=== PATIENT | male | born 1965 | race African-American/Black ===

== ENCOUNTER 2016-12-05 16:55 | Inpatient (IN) | payer OTHER ==
[~2016-12-05] VITALS: Ht 172.7 cm; Wt 117.9 kg
[~2016-12-05 16:55] MED LIST: AMLODIPINE BESYL5 MG PO; BACLOFEN10 MG PO; BUSPAR15 MG PO; CELECOXIB200 MG PO; CIALIS5 MG PO; FENTANYL1 EAC4 TD; FLOVENT DISKUS1 DISK IH; GABAPENTIN400 MG PO; LEXAPRO20 MG PO; LISINOPRIL5 MG PO; NEURONTIN300 MG PO; OMEPRAZOLE20 MG PO; OXYCODONE-APAP1 EACH PO; POLYETHYLENE GL17 GM PO; PREDNISONE10 MG PO; SEROQUEL200 MG PO; SEROQUEL50 MG PO; SIMVASTATIN40 MG PO; TAMSULOSIN HCL0.4 MG PO; TIZANIDINE HCL2 MG PO; TRILEPTAL600 MG PO; VENTOLIN HFA18 GM IH; ZITHROMAX Z-PA250 MG PO
[2016-12-05 17:58] LABS: EOSINOPHIL (%) 4.4 % (0-5); EOSINOPHIL COUNT 0.5 K/uL (0-0.3); HEMATOCRIT 37.4 % (38.0-50.0); IMMATURE GRANULOCYTE (%) 0.2 % (0.0-0.7); IMMATURE GRANULOCYTE COUNT 0.2 K/uL; LYMPHOCYTE COUNT 1.6 K/uL (1.0-2.8); MCH 27.2 PG (29.0-34.0); MCHC 32.9 G/DL (30.0-36.0); MCV 82.7 FL (86-99); MEAN PLAT.VOLUME 8.9 uM^3 (9.0-12.4); MONOCYTE (%) 11.7 % (3-12); MONOCYTE COUNT 1.3 K/uL (0-0.8); NEUTROPHIL (%) 68.8 % (45-76); NEUTROPHIL COUNT 7.4 K/uL (1.8-6.4); PLATELET COUNT 292 K/uL (156-360); RBC DIS.WIDTH-CV 15.6 % (11.8-14.6); RBC DIS.WIDTH-SD 46.8 % (39-53); RED BLOOD COUNT 4.52 M/uL (4.00-5.50); WHITE BLOOD COUNT 10.7 K/uL (4.1-10.2)
[2016-12-05 18:11] LABS: CHLORIDE 100 mEq/L (99-109); POTASSIUM 3.6 mEq/L (3.7-5.4); SODIUM 137 mEq/L (136-147)
[2016-12-05 18:12] LABS: MAGNESIUM 2.3 mg/dL (1.3-2.7)
[2016-12-05 18:14] LABS: GLUCOSE 117 mg/dL (70-99)
[2016-12-05 18:15] LABS: ANION GAP 11 MEQ/L (2-14)
[2016-12-05 18:16] LABS: TOTAL BILIRUBIN 0.4 mg/dL (0.0-1.0)
[2016-12-05 18:17] LABS: ALKALINE PHOSPHATASE 70 IU/L (3-129); GFR ESTIMATE (CALCULATED) 29 mL/min/
[2016-12-05 18:18] LABS: UREA NITROGEN (BUN) 31 mg/dL (9-23)
[2016-12-05 18:20] LABS: TROP-I INTERPRETATION NEGATIVE; TROPONIN-I 0.01 ng/mL (0.0-0.30)
[2016-12-05 20:14] LABS: ADD MIUA? YES; BILIRUBIN NEGATIVE; BLOOD MODERATE; COLOR YELLOW ((YELLOW)); GLUCOSE (STRIP) NEGATIVE; KETONES NEGATIVE; LEUKOCYTES LARGE; NITRITE NEGATIVE; PROTEIN (STRIP) 100; SPECIFIC GRAVITY 1.012 (1.000-1.030); UROBILINOGEN 0.2 MG/DL (0.2-1.0)
[2016-12-05 20:30] LABS: CALCIUM OXALATE CRYSTALS 2+ /HPF; CRYSTALS PRESENT; EPITHELIAL CELLS 1+ /HPF
[2016-12-05 20:31] LABS: BACTERIA 1+ /HPF; CASTS NONE SEEN /LPF; MUCUS 3+ /LPF; UCUL ADDED? NO
[2016-12-05 21:46] LABS: SALICYLATE < 5.0 MG/DL (15-30)
[2016-12-05 23:30] VITALS: BP 133/64; BP 136/76
[2016-12-06 04:00] VITALS: BP 118/76
[2016-12-06 07:39] LABS: HEMATOCRIT 34.8 % (38.0-50.0); MCH 27.6 PG (29.0-34.0); MCHC 33.3 G/DL (30.0-36.0); MCV 82.7 FL (86-99); PLATELET COUNT 261 K/uL (156-360); RBC DIS.WIDTH-CV 15.3 % (11.8-14.6); RBC DIS.WIDTH-SD 46.2 % (39-53); RED BLOOD COUNT 4.21 M/uL (4.00-5.50)
[2016-12-06 07:41] LABS: WHITE BLOOD COUNT 7.3 K/uL (4.1-10.2)
[2016-12-06 07:53] LABS: AMPHETAMINES QUANT VALUE 0 NG/ML; BARBITUATES QUANT VALUE 0 NG/ML; BENZODIAZEPINES, URINE SCREEN POSITIVE (200 ng/mL); PHENCYCLIDINE QUANT VALUE 0 NG/ML
[2016-12-06 09:26] LABS: ALKALINE PHOSPHATASE 51 IU/L (3-129); ANION GAP 9 MEQ/L (2-14); CHLORIDE 105 MEQ/L (99-109); GFR ESTIMATE (CALCULATED) 37 mL/min/; GLUCOSE 118 mg/dL (70-99); POTASSIUM 4.5 MEQ/L (3.7-5.4); SAMPLE HEMOLYSIS CHECK 0; SAMPLE ICTERIC CHECK 0; SAMPLE LIPEMIA CHECK 0; SODIUM 140 MEQ/L (136-147); TOTAL BILIRUBIN 0.5 MG/DL (0.0-1.0); UREA NITROGEN (BUN) 27 mg/dL (9-23)
[2016-12-06 09:56] LABS: FERRITIN 219 NG/ML (22-322)
[2016-12-06 10:00] VITALS: BP 158/79
[2016-12-06 12:00] VITALS: BP 158/79
[2016-12-06 16:00] VITALS: BP 135/80
[2016-12-06 20:00] VITALS: BP 157/79
[2016-12-06 23:55] VITALS: BP 158/77
[2016-12-07] MEDS ORDERED: BACLOFEN20 MG PO (00:47)
[2016-12-07] MEDS ORDERED: PRILOSEC OTC20 MG PO (00:48)
[2016-12-07] MEDS ORDERED: LASIX20 MG PO (00:48)
[2016-12-07] MEDS ORDERED: AMLODIPINE BESYL5 MG PO (00:48)
[2016-12-07] MEDS ORDERED: SIMVASTATIN40 MG PO (00:50)
[2016-12-07] MEDS ORDERED: LISINOPRIL5 MG PO (00:51)
[2016-12-07] MEDS ORDERED: FLOMAX0.4 MG PO (00:51)
[2016-12-07] MEDS ORDERED: OXYMORPHONE HCL20 MG PO (00:53)
[2016-12-07] MEDS ORDERED: OXYCODONE HCL15 MG PO (00:53)
[2016-12-07 04:00] VITALS: BP 130/69
[2016-12-07 06:13] LABS: EOSINOPHIL (%) 5.3 % (0-5); EOSINOPHIL COUNT 0.3 K/uL (0-0.3); HEMATOCRIT 30.7 % (38.0-50.0); IMMATURE GRANULOCYTE (%) 0.3 % (0.0-0.7); LYMPHOCYTE COUNT 2.1 K/uL (1.0-2.8); MCH 27.4 PG (29.0-34.0); MCHC 33.2 G/DL (30.0-36.0); MCV 82.5 FL (86-99); MONOCYTE (%) 13.8 % (3-12); MONOCYTE COUNT 0.9 K/uL (0-0.8); NEUTROPHIL (%) 47.3 % (45-76); NEUTROPHIL COUNT 3.1 K/uL (1.8-6.4); PLATELET COUNT 230 K/uL (156-360); RBC DIS.WIDTH-CV 15.7 % (11.8-14.6); RBC DIS.WIDTH-SD 47.5 % (39-53); RED BLOOD COUNT 3.72 M/uL (4.00-5.50); WHITE BLOOD COUNT 6.4 K/uL (4.1-10.2)
[2016-12-07 06:45] LABS: ALKALINE PHOSPHATASE 44 IU/L (3-129); ANION GAP 5 MEQ/L (2-14); CHLORIDE 106 MEQ/L (99-109); GFR ESTIMATE (CALCULATED) > 59 mL/min/; GLUCOSE 99 mg/dL (70-99); SAMPLE HEMOLYSIS CHECK 0; SAMPLE ICTERIC CHECK 0; SAMPLE LIPEMIA CHECK 0; SODIUM 139 MEQ/L (136-147); TOTAL BILIRUBIN 0.4 MG/DL (0.0-1.0); UREA NITROGEN (BUN) 21 mg/dL (9-23)
[2016-12-07 07:54] VITALS: BP 147/91
[2016-12-07 15:34] VITALS: BP 143/71
[2016-12-07 23:57] VITALS: BP 142/60
[2016-12-08 06:34] LABS: EOSINOPHIL (%) 8.3 % (0-5); EOSINOPHIL COUNT 0.5 K/uL (0-0.3); HEMATOCRIT 32.2 % (38.0-50.0); LYMPHOCYTE COUNT 2.7 K/uL (1.0-2.8); MCH 27.3 PG (29.0-34.0); MCHC 32.6 G/DL (30.0-36.0); MCV 83.6 FL (86-99); MEAN PLAT.VOLUME 9.7 uM^3 (9.0-12.4); MONOCYTE (%) 10.6 % (3-12); MONOCYTE COUNT 0.7 K/uL (0-0.8); NEUTROPHIL (%) 37.7 % (45-76); NEUTROPHIL COUNT 2.4 K/uL (1.8-6.4); PLATELET COUNT 255 K/uL (156-360); RBC DIS.WIDTH-CV 15.6 % (11.8-14.6); RBC DIS.WIDTH-SD 47.8 % (39-53); RED BLOOD COUNT 3.85 M/uL (4.00-5.50); WHITE BLOOD COUNT 6.3 K/uL (4.1-10.2)
[2016-12-08 07:04] LABS: ALKALINE PHOSPHATASE 46 IU/L (3-129); ANION GAP 9 MEQ/L (2-14); CHLORIDE 105 MEQ/L (99-109); GFR ESTIMATE (CALCULATED) > 59 mL/min/; GLUCOSE 127 mg/dL (70-99); SAMPLE HEMOLYSIS CHECK 0; SAMPLE ICTERIC CHECK 0; SAMPLE LIPEMIA CHECK 0; SODIUM 140 MEQ/L (136-147); UREA NITROGEN (BUN) 15 mg/dL (9-23)
[2016-12-08 07:10] LABS: TOTAL BILIRUBIN 0.3 MG/DL (0.0-1.0)
[2016-12-08 07:52] VITALS: BP 130/82
[2016-12-08] MEDS ORDERED: GABAPENTIN400 MG PO (11:53)
[2016-12-08] MEDS ORDERED: GABAPENTIN600 MG PO (11:53)
[2016-12-08 16:05] VITALS: BP 138/83
[2016-12-08 23:04] VITALS: BP 148/88
[2016-12-09 09:26] VITALS: BP 158/77
[2016-12-09 16:30] VITALS: BP 148/85
[2016-12-09] MEDS ORDERED: NEURONTIN600 MG PO (18:00)
[2016-12-09] MEDS ORDERED: GABAPENTIN600 MG PO ×3 (18:02→18:04)
[2016-12-09 23:28] VITALS: BP 140/80
[2016-12-10 07:00] VITALS: BP 143/84
[2016-12-10 07:27] LABS: HEMATOCRIT 32.8 % (38.0-50.0); MCH 27.4 PG (29.0-34.0); MCHC 33.5 G/DL (30.0-36.0); MCV 81.8 FL (86-99); MEAN PLAT.VOLUME 9.4 uM^3 (9.0-12.4); PLATELET COUNT 245 K/uL (156-360); RBC DIS.WIDTH-CV 15.2 % (11.8-14.6); RBC DIS.WIDTH-SD 45.1 % (39-53); RED BLOOD COUNT 4.01 M/uL (4.00-5.50); WHITE BLOOD COUNT 7.7 K/uL (4.1-10.2)
[2016-12-10 07:50] LABS: ALKALINE PHOSPHATASE 48 IU/L (3-129); ANION GAP 7 MEQ/L (2-14); CHLORIDE 104 MEQ/L (99-109); GFR ESTIMATE (CALCULATED) > 59 mL/min/; GLUCOSE 106 mg/dL (70-99); POTASSIUM 3.9 MEQ/L (3.7-5.4); SAMPLE HEMOLYSIS CHECK 0; SAMPLE ICTERIC CHECK 0; SAMPLE LIPEMIA CHECK 0; SODIUM 142 MEQ/L (136-147); TOTAL BILIRUBIN 0.3 MG/DL (0.0-1.0); UREA NITROGEN (BUN) 9 mg/dL (9-23)
== END 2016-12-10 12:45 | disposition home health service (06) | DRG 918 ==
LOC: EME 16:55 → EDOF 21:10 → 4EAST 21:10 → EDOF 21:49 → 4EAST 23:47 → 5EAST 12-07 14:01
PROVIDERS: Emergency Medicine; Internal Medicine; Nurse Practitioner Adult Health; Pediatrics
DX: T40.601A Poisoning by unspecified narcotics, accidental (unintentional), initial encounter (principal); N17.9 Acute kidney failure, unspecified; T83.511A Infection and inflammatory reaction due to indwelling urethral catheter, initial encounter; T83.091A Other mechanical complication of indwelling urethral catheter, initial encounter; N39.0 Urinary tract infection, site not specified; G82.21 Paraplegia, complete; B95.2 Enterococcus as the cause of diseases classified elsewhere; B96.20 Unspecified Escherichia coli [E. coli] as the cause of diseases classified elsewhere; N36.8 Other specified disorders of urethra; E87.6 Hypokalemia; G35 Multiple sclerosis; N31.9 Neuromuscular dysfunction of bladder, unspecified; I10 Essential (primary) hypertension; K21.9 Gastro-esophageal reflux disease without esophagitis; E78.00 Pure hypercholesterolemia, unspecified; N40.1 Benign prostatic hyperplasia with lower urinary tract symptoms; R33.9 Retention of urine, unspecified; G89.29 Other chronic pain; E66.9 Obesity, unspecified; Z88.2 Allergy status to sulfonamides; Z68.39 Body mass index [BMI] 39.0-39.9, adult
CPT/HCPCS: 70450; 71010; 76770; 80053; 80306 90; 81003; 82306; 82728; 83605; 83735; 84484; 85025; 85027; 87040; 87077; 87086; 87186; 94799; 99281; 99285; G0480; J0696; J1644; J2310; J2405; J3480; J7030; J7040; J7050; S0028

== ENCOUNTER 2017-02-16 19:33 | Inpatient (IN) | payer OTHER ==
[~2017-02-16] VITALS: Ht 167.6 cm; Wt 119.2 kg
[~2017-02-16 19:33] MED LIST changes: +BACLOFEN20 MG PO; +FLOMAX0.4 MG PO; +GABAPENTIN600 MG PO; +LASIX20 MG PO; +NEURONTIN600 MG PO; +OXYCODONE HCL15 MG PO; +OXYMORPHONE HCL20 MG PO; +PRILOSEC OTC20 MG PO
[2017-02-16 21:11] LABS: EOSINOPHIL (%) 0 % (0-5); HEMATOCRIT 34.7 % (38.0-50.0); IMMATURE GRANULOCYTE COUNT 0.2 K/uL; INSTRUMENT ABS NEUTROPHIL CT 12.7 K/uL; LYMPHOCYTE COUNT 1.1 K/uL (1.0-2.8); MCH 26.6 PG (29.0-34.0); MCV 83.2 FL (86-99); MEAN PLAT.VOLUME 8.6 uM^3 (9.0-12.4); MONOCYTE (%) 8.5 % (3-12); MONOCYTE COUNT 1.3 K/uL (0-0.8); NEUTROPHIL (%) 83.2 % (45-76); NEUTROPHIL COUNT 12.7 K/uL (1.8-6.4); PLATELET COUNT 452 K/uL (156-360); RBC DIS.WIDTH-CV 13.3 % (11.8-14.6); RBC DIS.WIDTH-SD 39.9 % (39-53); RED BLOOD COUNT 4.17 M/uL (4.00-5.50); WHITE BLOOD COUNT 15.3 K/uL (4.1-10.2)
[2017-02-16 21:18] LABS: CHLORIDE 93 mEq/L (99-109); SODIUM 134 mEq/L (136-147)
[2017-02-16 21:21] LABS: GLUCOSE 116 mg/dL (70-99)
[2017-02-16 21:22] LABS: ANION GAP 12 MEQ/L (2-14)
[2017-02-16 21:23] LABS: TOTAL BILIRUBIN 0.6 mg/dL (0.0-1.0)
[2017-02-16 21:24] LABS: ALKALINE PHOSPHATASE 85 IU/L (3-129); GFR ESTIMATE (CALCULATED) > 59 mL/min/
[2017-02-16 21:25] LABS: UREA NITROGEN (BUN) 12 mg/dL (9-23)
[2017-02-16 21:28] LABS: LIPASE 10 U/L (1.0-51.0)
[2017-02-16 21:33] LABS: ADD MIUA? YES; BILIRUBIN NEGATIVE; BLOOD LARGE; COLOR AMBER ((YELLOW)); GLUCOSE (STRIP) NEGATIVE; KETONES 5; LEUKOCYTES MODERATE; NITRITE NEGATIVE; PROTEIN (STRIP) 100; SPECIFIC GRAVITY 1.015 (1.000-1.030)
[2017-02-16 21:41] LABS: BACTERIA NONE SEEN /HPF; EPITHELIAL CELLS NONE SEEN /HPF; MUCUS NONE SEEN /LPF; RED BLOOD CELLS 40-50 /HPF (0-5); UCUL ADDED? NO; WHITE BLOOD CELLS 20-30 /HPF (0-5); WHITE BLOOD CELLS CLUMP MANY /HPF (0-5)
[2017-02-16] MEDS ORDERED: OPANA ER20 MG PO (23:51)
[2017-02-16] MEDS ORDERED: OXYMORPHONE HCL15 MG PO (23:52)
[2017-02-16] MEDS ORDERED: CYMBALTA60 MG PO (23:54)
[2017-02-16] MEDS ORDERED: LEXAPRO20 MG PO (23:54)
[2017-02-16] MEDS ORDERED: CLONIDINE HCL0.1 MG PO (23:54)
[2017-02-17 00:35] VITALS: BP 142/76
[2017-02-17 04:57] VITALS: BP 146/63
[2017-02-17 06:10] LABS: HEMATOCRIT 32.7 % (38.0-50.0); MCH 26.7 PG (29.0-34.0); MCHC 31.2 G/DL (30.0-36.0); MCV 85.6 FL (86-99); MEAN PLAT.VOLUME 9.1 uM^3 (9.0-12.4); PLATELET COUNT 401 K/uL (156-360); RBC DIS.WIDTH-CV 13.4 % (11.8-14.6); RED BLOOD COUNT 3.82 M/uL (4.00-5.50)
[2017-02-17 06:26] LABS: ANION GAP 11 MEQ/L (2-14); CHLORIDE 96 MEQ/L (99-109); GFR ESTIMATE (CALCULATED) > 59 mL/min/; GLUCOSE 115 mg/dL (70-99); POTASSIUM 4.3 MEQ/L (3.7-5.4); SAMPLE HEMOLYSIS CHECK 0; SAMPLE ICTERIC CHECK 0; SAMPLE LIPEMIA CHECK 0; SODIUM 135 MEQ/L (136-147); UREA NITROGEN (BUN) 11 mg/dL (9-23)
[2017-02-17 07:30] VITALS: BP 143/84
[2017-02-17 11:05] VITALS: BP 138/79
[2017-02-17 15:18] LABS: D-DIMER ELISA 1.56 mg/L FEU (< 0.57)
[2017-02-17 15:40] LABS: INTER. NORMALIZED RATIO 1.4; PROTHROMBIN TIME 14.9 (9.2-11.2)
[2017-02-17 16:13] VITALS: BP 146/69
[2017-02-17 20:31] VITALS: BP 131/79
[2017-02-17 22:22] LABS: POINT-OF-CARE METER ID UU13113698
[2017-02-18 00:10] VITALS: BP 114/62
[2017-02-18 03:40] VITALS: BP 104/65
[2017-02-18 05:01] VITALS: BP 105/59
[2017-02-18 06:56] LABS: INTER. NORMALIZED RATIO 1.3; PROTHROMBIN TIME 13.4 (9.2-11.2)
[2017-02-18 07:35] VITALS: BP 112/72
[2017-02-18 08:08] LABS: EOSINOPHIL (%) 2.1 % (0-5); EOSINOPHIL COUNT 0.2 K/uL (0-0.3); HEMATOCRIT 38.5 % (38.0-50.0); IMMATURE GRANULOCYTE (%) 0.4 % (0.0-0.7); INSTRUMENT ABS NEUTROPHIL CT 5.8 K/uL; LYMPHOCYTE COUNT 1.1 K/uL (1.0-2.8); MCH 26.3 PG (29.0-34.0); MCHC 30.6 G/DL (30.0-36.0); MCV 85.7 FL (86-99); MEAN PLAT.VOLUME 9.8 uM^3 (9.0-12.4); MONOCYTE (%) 10.4 % (3-12); MONOCYTE COUNT 0.8 K/uL (0-0.8); NEUTROPHIL (%) 73.1 % (45-76); NEUTROPHIL COUNT 5.8 K/uL (1.8-6.4); PLATELET COUNT 295 K/uL (156-360); RBC DIS.WIDTH-CV 13.4 % (11.8-14.6); RBC DIS.WIDTH-SD 42.5 % (39-53); RED BLOOD COUNT 4.49 M/uL (4.00-5.50)
[2017-02-18 12:20] VITALS: BP 93/52
[2017-02-18 13:17] LABS: ANION GAP 6 MEQ/L (2-14); CHLORIDE 93 MEQ/L (99-109); GFR ESTIMATE (CALCULATED) > 59 mL/min/; GLUCOSE 126 mg/dL (70-99); POTASSIUM 3.6 MEQ/L (3.7-5.4); SAMPLE HEMOLYSIS CHECK 0; SAMPLE ICTERIC CHECK 0; SAMPLE LIPEMIA CHECK 0; SODIUM 130 MEQ/L (136-147); UREA NITROGEN (BUN) 10 mg/dL (9-23)
[2017-02-18 20:00] VITALS: BP 107/59
[2017-02-19] VITALS: BP 102/53
[2017-02-19 04:00] VITALS: BP 95/57
[2017-02-19 07:45] VITALS: BP 102/65
[2017-02-19 08:44] LABS: EOSINOPHIL COUNT 0.4 K/uL (0-0.3); HEMATOCRIT 27.9 % (38.0-50.0); IMMATURE GRANULOCYTE (%) 0.4 % (0.0-0.7); INSTRUMENT ABS NEUTROPHIL CT 4.1 K/uL; LYMPHOCYTE COUNT 1.6 K/uL (1.0-2.8); MCH 26.8 PG (29.0-34.0); MCHC 31.9 G/DL (30.0-36.0); MEAN PLAT.VOLUME 9.1 uM^3 (9.0-12.4); NEUTROPHIL (%) 57.8 % (45-76); NEUTROPHIL COUNT 4.1 K/uL (1.8-6.4); PLATELET COUNT 333 K/uL (156-360); RBC DIS.WIDTH-CV 13.2 % (11.8-14.6); RBC DIS.WIDTH-SD 40.8 % (39-53); WHITE BLOOD COUNT 7.2 K/uL (4.1-10.2)
[2017-02-19 08:45] LABS: RED BLOOD COUNT 3.32 M/uL (4.00-5.50)
[2017-02-19 08:46] LABS: INTER. NORMALIZED RATIO 1.2; PROTHROMBIN TIME 12.2 (9.2-11.2)
[2017-02-19 08:54] LABS: ANION GAP 6 MEQ/L (2-14); CHLORIDE 93 MEQ/L (99-109); GFR ESTIMATE (CALCULATED) > 59 mL/min/; GLUCOSE 112 mg/dL (70-99); POTASSIUM 3.6 MEQ/L (3.7-5.4); SAMPLE HEMOLYSIS CHECK 0; SAMPLE ICTERIC CHECK 0; SAMPLE LIPEMIA CHECK 0; SODIUM 131 MEQ/L (136-147); UREA NITROGEN (BUN) 9 mg/dL (9-23)
[2017-02-19 11:15] VITALS: BP 118/65
[2017-02-19 15:16] VITALS: BP 107/71
[2017-02-19 20:00] VITALS: BP 95/57
[2017-02-20] VITALS (7 sets, daily range): BP systolic 96–126; BP diastolic 51–70
[2017-02-20 05:42] LABS: EOSINOPHIL (%) 4.2 % (0-5); EOSINOPHIL COUNT 0.3 K/uL (0-0.3); IMMATURE GRANULOCYTE (%) 0.5 % (0.0-0.7); INSTRUMENT ABS NEUTROPHIL CT 3.5 K/uL; LYMPHOCYTE COUNT 1.5 K/uL (1.0-2.8); MCH 26.7 PG (29.0-34.0); MCV 83.6 FL (86-99); MEAN PLAT.VOLUME 9.1 uM^3 (9.0-12.4); MONOCYTE (%) 12.4 % (3-12); MONOCYTE COUNT 0.7 K/uL (0-0.8); NEUTROPHIL (%) 58.4 % (45-76); NEUTROPHIL COUNT 3.5 K/uL (1.8-6.4); PLATELET COUNT 359 K/uL (156-360); RBC DIS.WIDTH-CV 12.9 % (11.8-14.6); RBC DIS.WIDTH-SD 39.4 % (39-53); RED BLOOD COUNT 3.59 M/uL (4.00-5.50)
[2017-02-20 05:48] LABS: INTER. NORMALIZED RATIO 1.4; PROTHROMBIN TIME 14.1 (9.2-11.2)
[2017-02-20 06:03] LABS: ALKALINE PHOSPHATASE 69 IU/L (3-129); ANION GAP 7 MEQ/L (2-14); CHLORIDE 92 MEQ/L (99-109); GFR ESTIMATE (CALCULATED) > 59 mL/min/; GLUCOSE 100 mg/dL (70-99); POTASSIUM 3.3 MEQ/L (3.7-5.4); SAMPLE HEMOLYSIS CHECK 0; SAMPLE ICTERIC CHECK 0; SAMPLE LIPEMIA CHECK 0; SODIUM 133 MEQ/L (136-147); TOTAL BILIRUBIN 0.3 MG/DL (0.0-1.0); UREA NITROGEN (BUN) 7 mg/dL (9-23)
[2017-02-21 04:28] VITALS: BP 128/78
[2017-02-21 06:41] LABS: PROTHROMBIN TIME 20.9 (9.2-11.2)
[2017-02-21 08:00] VITALS: BP 123/70
[2017-02-21 12:00] VITALS: BP 145/80
[2017-02-21 16:00] VITALS: BP 142/75
[2017-02-21] MEDS ORDERED: REQUIP0.25 MG PO (18:25)
[2017-02-21 19:57] VITALS: BP 119/75
[2017-02-21 23:29] VITALS: BP 128/62
[2017-02-22 03:34] VITALS: BP 136/73
[2017-02-22 07:35] VITALS: BP 139/90
[2017-02-22 07:39] LABS: INTER. NORMALIZED RATIO 2.9
[2017-02-22 07:46] LABS: PROTHROMBIN TIME 30.8 (9.2-11.2)
[2017-02-22 10:21] LABS: ANION GAP 6 MEQ/L (2-14); CHLORIDE 95 MEQ/L (99-109); GFR ESTIMATE (CALCULATED) > 59 mL/min/; GLUCOSE 112 mg/dL (70-99); POTASSIUM 4.2 MEQ/L (3.7-5.4); SAMPLE HEMOLYSIS CHECK 0; SAMPLE ICTERIC CHECK 0; SAMPLE LIPEMIA CHECK 0; SODIUM 134 MEQ/L (136-147); UREA NITROGEN (BUN) 6 mg/dL (9-23)
[2017-02-22 11:30] VITALS: BP 137/80
[2017-02-22 15:22] VITALS: BP 122/66
[2017-02-22 19:51] VITALS: BP 113/85
[2017-02-22 23:33] VITALS: BP 128/76
[2017-02-23 03:29] VITALS: BP 111/68
[2017-02-23 07:17] VITALS: BP 135/84
[2017-02-23 07:38] LABS: INTER. NORMALIZED RATIO 2.3
[2017-02-23 07:50] LABS: ANION GAP 5 MEQ/L (2-14); CHLORIDE 95 MEQ/L (99-109); GFR ESTIMATE (CALCULATED) > 59 mL/min/; GLUCOSE 100 mg/dL (70-99); POTASSIUM 4.2 MEQ/L (3.7-5.4); SAMPLE HEMOLYSIS CHECK 0; SAMPLE ICTERIC CHECK 0; SAMPLE LIPEMIA CHECK 0; SODIUM 133 MEQ/L (136-147); UREA NITROGEN (BUN) 7 mg/dL (9-23)
[2017-02-23 11:05] VITALS: BP 134/71
[2017-02-23 15:00] VITALS: BP 125/72
[2017-02-23] MEDS ORDERED: WARFARIN SODIUM5 MG PO (15:43)
[2017-02-23] MEDS ORDERED: CEFDINIR300 MG PO (15:43)
== END 2017-02-23 19:36 | disposition home health service (06) | DRG 872 ==
LOC: EME → EDBD 19:33 → 4SOUTH 23:07 → EDOF 23:07 → 4SOUTH 02-17 00:19
PROVIDERS: Emergency Medicine; Hospitalist; Nurse Practitioner Adult Health; Pediatrics; Physician Assistant; Physician Assistant Medical
DX: A41.9 Sepsis, unspecified organism (principal); N10 Acute pyelonephritis; I82.413 Acute embolism and thrombosis of femoral vein, bilateral; K59.00 Constipation, unspecified; E87.6 Hypokalemia; N31.2 Flaccid neuropathic bladder, not elsewhere classified; G35 Multiple sclerosis; N40.1 Benign prostatic hyperplasia with lower urinary tract symptoms; Z99.3 Dependence on wheelchair; G82.20 Paraplegia, unspecified; I10 Essential (primary) hypertension; E78.5 Hyperlipidemia, unspecified; G89.29 Other chronic pain; E66.01 Morbid (severe) obesity due to excess calories; Z68.41 Body mass index [BMI] 40.0-44.9, adult; Z86.14 Personal history of Methicillin resistant Staphylococcus aureus infection; D64.9 Anemia, unspecified; K21.9 Gastro-esophageal reflux disease without esophagitis; T83.098A Other mechanical complication of other urinary catheter, initial encounter; N48.89 Other specified disorders of penis; L89.322 Pressure ulcer of left buttock, stage 2; M54.2 Cervicalgia; I89.0 Lymphedema, not elsewhere classified
CPT/HCPCS: 71010; 71275; 74000; 74176; 80048; 80053; 81003; 82948; 83605; 83690; 85025; 85027; 85379; 85610; 87040; 93306; 93970; 99281; 99285; J0692; J0696; J1650; J1940; J2405; J3475; J7030; J7050; S0028

== ENCOUNTER 2017-07-05 18:28 | Inpatient (IN) | payer OTHER ==
[~2017-07-05] VITALS: Ht 172.7 cm; Wt 122.5 kg
[~2017-07-05 18:28] MED LIST changes: +CEFDINIR300 MG PO; +CLONIDINE HCL0.1 MG PO; +CYMBALTA60 MG PO; +OPANA ER20 MG PO; +OXYMORPHONE HCL15 MG PO; +REQUIP0.25 MG PO; +WARFARIN SODIUM5 MG PO
[2017-07-05 19:16] LABS: HEMATOCRIT 36.5 % (38.0-50.0); MCH 25.9 PG (29.0-34.0); MCHC 31.2 G/DL (30.0-36.0); MEAN PLAT.VOLUME 8.3 uM^3 (9.0-12.4); RBC DIS.WIDTH-CV 14.6 % (11.8-14.6); RBC DIS.WIDTH-SD 44.3 % (39-53); WHITE BLOOD COUNT 6.3 K/uL (4.1-10.2)
[2017-07-05 19:29] LABS: CHLORIDE 89 mEq/L (99-109); PLATELET COUNT 243 K/uL (156-360)
[2017-07-05 19:30] LABS: POTASSIUM 3.5 mEq/L (3.7-5.4); SODIUM 132 mEq/L (136-147)
[2017-07-05 19:31] LABS: GLUCOSE 107 mg/dL (70-99)
[2017-07-05 19:33] LABS: ANION GAP 8 MEQ/L (2-14)
[2017-07-05 19:35] LABS: GFR ESTIMATE (CALCULATED) > 59 mL/min/
[2017-07-05 19:36] LABS: UREA NITROGEN (BUN) 7 mg/dL (9-23)
[2017-07-05] MEDS ORDERED: LISINOPRIL10 MG PO (22:00)
[2017-07-05] MEDS ORDERED: CARISOPRODOL350 MG PO (22:00)
[2017-07-05] MEDS ORDERED: OXYCODONE HCL30 MG PO (22:00)
[2017-07-05] MEDS ORDERED: COUMADIN5 MG PO (22:03)
[2017-07-05] MEDS ORDERED: COUMADIN1 MG PO (22:04)
[2017-07-05] MEDS ORDERED: REQUIP2 MG PO (22:08)
[2017-07-05] MEDS ORDERED: SEROQUEL50 MG PO (22:09)
[2017-07-05] MEDS ORDERED: ADDERALL XR 1010 MG PO (22:10)
[2017-07-06 02:28] LABS: PROTHROMBIN TIME 58.7 SEC (10.2-12.9)
[2017-07-06 03:11] VITALS: BP 101/57
[2017-07-06 05:18] LABS: METH RESISTANT S AUREUS PCR POSITIVE (NEGATIVE)
[2017-07-06 05:25] LABS: PROBE CHECK PASS
[2017-07-06 07:04] VITALS: BP 94/50
[2017-07-06 15:00] VITALS: BP 100/56
[2017-07-07 00:08] VITALS: BP 107/57
[2017-07-07 06:52] LABS: HEMATOCRIT 30.5 % (38.0-50.0); MCH 26.6 PG (29.0-34.0); MCHC 31.8 G/DL (30.0-36.0); MCV 83.8 FL (86-99); MEAN PLAT.VOLUME 8.7 uM^3 (9.0-12.4); PLATELET COUNT 249 K/uL (156-360); RBC DIS.WIDTH-CV 15.1 % (11.8-14.6); RBC DIS.WIDTH-SD 45.7 % (39-53); RED BLOOD COUNT 3.64 M/uL (4.00-5.50); WHITE BLOOD COUNT 4.7 K/uL (4.1-10.2)
[2017-07-07 07:26] LABS: INTER. NORMALIZED RATIO 3.2; PROTHROMBIN TIME 36.9 SEC (10.2-12.9)
[2017-07-07 07:31] LABS: ALKALINE PHOSPHATASE 62 IU/L (3-129); ANION GAP 3 MEQ/L (2-14); CHLORIDE 96 MEQ/L (99-109); GFR ESTIMATE (CALCULATED) > 59 mL/min/; GLUCOSE 107 mg/dL (70-99); POTASSIUM 3.6 MEQ/L (3.7-5.4); SAMPLE HEMOLYSIS CHECK 0; SAMPLE ICTERIC CHECK 0; SAMPLE LIPEMIA CHECK 0; SODIUM 135 MEQ/L (136-147); TOTAL BILIRUBIN 0.3 MG/DL (0.0-1.0); UREA NITROGEN (BUN) 8 mg/dL (9-23)
[2017-07-07 07:43] VITALS: BP 86/45
[2017-07-07 10:55] VITALS: BP 106/72
[2017-07-07 16:35] VITALS: BP 124/67
[2017-07-07 23:21] VITALS: BP 121/59
[2017-07-08 06:47] LABS: MCH 27.1 PG (29.0-34.0); MCV 84.7 FL (86-99); MEAN PLAT.VOLUME 9.3 uM^3 (9.0-12.4); PLATELET COUNT 237 K/uL (156-360); RBC DIS.WIDTH-CV 15.4 % (11.8-14.6); RBC DIS.WIDTH-SD 47.3 % (39-53); RED BLOOD COUNT 3.54 M/uL (4.00-5.50); WHITE BLOOD COUNT 4.9 K/uL (4.1-10.2)
[2017-07-08 07:10] LABS: INTER. NORMALIZED RATIO 2.5; PROTHROMBIN TIME 28.6 SEC (10.2-12.9)
[2017-07-08 07:15] LABS: ANION GAP 4 MEQ/L (2-14); CHLORIDE 101 MEQ/L (99-109); GFR ESTIMATE (CALCULATED) > 59 mL/min/; GLUCOSE 104 mg/dL (70-99); POTASSIUM 4.1 MEQ/L (3.7-5.4); SAMPLE HEMOLYSIS CHECK 0; SAMPLE ICTERIC CHECK 0; SAMPLE LIPEMIA CHECK 0; SODIUM 137 MEQ/L (136-147); UREA NITROGEN (BUN) 12 mg/dL (9-23)
[2017-07-08 07:43] LABS: IRON 26 MCG/DL (35-150)
[2017-07-08 07:44] LABS: ALKALINE PHOSPHATASE 58 IU/L (3-129); ANION GAP 3 MEQ/L (2-14); CHLORIDE 101 MEQ/L (99-109); GFR ESTIMATE (CALCULATED) > 59 mL/min/; GLUCOSE 104 mg/dL (70-99); POTASSIUM 4.1 MEQ/L (3.7-5.4); SAMPLE HEMOLYSIS CHECK 0; SAMPLE ICTERIC CHECK 0; SAMPLE LIPEMIA CHECK 0; SODIUM 137 MEQ/L (136-147); TOTAL BILIRUBIN 0.2 MG/DL (0.0-1.0); UREA NITROGEN (BUN) 12 mg/dL (9-23); VANCOMYCIN, TROUGH 13.6 MCG/ML (10-20)
[2017-07-08 08:21] VITALS: BP 120/80
[2017-07-08 11:24] VITALS: BP 118/78
[2017-07-08 16:05] VITALS: BP 108/57
[2017-07-08 17:58] LABS: INTERNAL CONTROL VALID? YES
[2017-07-09 00:15] VITALS: BP 103/58
[2017-07-09 07:02] LABS: HEMATOCRIT 32.1 % (38.0-50.0); MCH 26.1 PG (29.0-34.0); MCHC 30.5 G/DL (30.0-36.0); MCV 85.4 FL (86-99); MEAN PLAT.VOLUME 8.7 uM^3 (9.0-12.4); PLATELET COUNT 232 K/uL (156-360); RBC DIS.WIDTH-CV 15.5 % (11.8-14.6); RBC DIS.WIDTH-SD 48.1 % (39-53); RED BLOOD COUNT 3.76 M/uL (4.00-5.50); WHITE BLOOD COUNT 4.8 K/uL (4.1-10.2)
[2017-07-09 07:19] LABS: INTER. NORMALIZED RATIO 2.3; PROTHROMBIN TIME 25.8 SEC (10.2-12.9)
[2017-07-09 07:31] LABS: ALKALINE PHOSPHATASE 58 IU/L (3-129); ANION GAP 4 MEQ/L (2-14); CHLORIDE 103 MEQ/L (99-109); GFR ESTIMATE (CALCULATED) > 59 mL/min/; GLUCOSE 99 mg/dL (70-99); POTASSIUM 4.2 MEQ/L (3.7-5.4); SAMPLE HEMOLYSIS CHECK 0; SAMPLE ICTERIC CHECK 0; SAMPLE LIPEMIA CHECK 0; SODIUM 137 MEQ/L (136-147); UREA NITROGEN (BUN) 13 mg/dL (9-23)
[2017-07-09 07:33] LABS: TOTAL BILIRUBIN 0.3 MG/DL (0.0-1.0)
[2017-07-09 07:38] VITALS: BP 123/58
[2017-07-09 15:54] VITALS: BP 102/48
[2017-07-09 23:35] VITALS: BP 118/68
[2017-07-10 06:09] LABS: EOSINOPHIL COUNT 0.3 K/uL (0-0.3); HEMATOCRIT 30.2 % (38.0-50.0); IMMATURE GRANULOCYTE (%) 0.4 % (0.0-0.7); INSTRUMENT ABS NEUTROPHIL CT 2.8 K/uL; LYMPHOCYTE COUNT 1.6 K/uL (1.0-2.8); MCH 25.9 PG (29.0-34.0); MCHC 30.5 G/DL (30.0-36.0); MCV 85.1 FL (86-99); MEAN PLAT.VOLUME 8.8 uM^3 (9.0-12.4); MONOCYTE (%) 13.5 % (3-12); MONOCYTE COUNT 0.7 K/uL (0-0.8); NEUTROPHIL (%) 51.1 % (45-76); NEUTROPHIL COUNT 2.8 K/uL (1.8-6.4); PLATELET COUNT 237 K/uL (156-360); RBC DIS.WIDTH-CV 15.6 % (11.8-14.6); RBC DIS.WIDTH-SD 47.6 % (39-53); RED BLOOD COUNT 3.55 M/uL (4.00-5.50); WHITE BLOOD COUNT 5.5 K/uL (4.1-10.2)
[2017-07-10 06:29] LABS: INTER. NORMALIZED RATIO 2.4; PROTHROMBIN TIME 27.3 SEC (10.2-12.9)
[2017-07-10 06:46] LABS: ALKALINE PHOSPHATASE 58 IU/L (3-129); ANION GAP 5 MEQ/L (2-14); CHLORIDE 103 MEQ/L (99-109); GFR ESTIMATE (CALCULATED) > 59 mL/min/; GLUCOSE 95 mg/dL (70-99); POTASSIUM 4.4 MEQ/L (3.7-5.4); SAMPLE HEMOLYSIS CHECK 0; SAMPLE ICTERIC CHECK 0; SAMPLE LIPEMIA CHECK 0; SODIUM 138 MEQ/L (136-147); UREA NITROGEN (BUN) 13 mg/dL (9-23)
[2017-07-10 06:48] LABS: TOTAL BILIRUBIN 0.2 MG/DL (0.0-1.0)
[2017-07-10 15:32] VITALS: BP 108/56
[2017-07-10 23:46] VITALS: BP 109/74
[2017-07-11 03:20] VITALS: BP 99/58
[2017-07-11 06:43] LABS: INTER. NORMALIZED RATIO 1.9; PROTHROMBIN TIME 21.9 SEC (10.2-12.9)
[2017-07-11 08:45] VITALS: BP 132/80
[2017-07-11] MEDS ORDERED: COUMADIN5 MG PO (14:07)
[2017-07-11] MEDS ORDERED: PRAVASTATIN SOD80 MG PO (14:07)
[2017-07-11 16:35] VITALS: BP 150/85
== END 2017-07-11 19:04 | disposition home health service (06) | DRG 602 ==
LOC: EME 18:28 → EDOF 23:11 → 3EAST 23:11 → ENRESERV 23:12 → 3EAST 07-06 03:00
PROVIDERS: Hospitalist; Nurse Practitioner Adult Health; Pediatrics; Physician Assistant; Radiology Diagnostic Radiology
DX: L03.116 Cellulitis of left lower limb (principal); L03.314 Cellulitis of groin; L03.311 Cellulitis of abdominal wall; B95.62 Methicillin resistant Staphylococcus aureus infection as the cause of diseases classified elsewhere; B96.5 Pseudomonas (aeruginosa) (mallei) (pseudomallei) as the cause of diseases classified elsewhere; L89.893 Pressure ulcer of other site, stage 3; G35 Multiple sclerosis; M24.451 Recurrent dislocation, right hip; L98.411 Non-pressure chronic ulcer of buttock limited to breakdown of skin; E66.01 Morbid (severe) obesity due to excess calories; Z68.41 Body mass index [BMI] 40.0-44.9, adult; N31.2 Flaccid neuropathic bladder, not elsewhere classified; M79.3 Panniculitis, unspecified; E87.6 Hypokalemia; R60.0 Localized edema; D50.9 Iron deficiency anemia, unspecified; I10 Essential (primary) hypertension; I25.10 Atherosclerotic heart disease of native coronary artery without angina pectoris; N40.0 Benign prostatic hyperplasia without lower urinary tract symptoms; K59.09 Other constipation; E78.5 Hyperlipidemia, unspecified; G89.29 Other chronic pain; I25.2 Old myocardial infarction; Z86.718 Personal history of other venous thrombosis and embolism; Z95.5 Presence of coronary angioplasty implant and graft; Z74.01 Bed confinement status; Z79.01 Long term (current) use of anticoagulants; Z79.891 Long term (current) use of opiate analgesic; Z88.3 Allergy status to other anti-infective agents; Z82.49 Family history of ischemic heart disease and other diseases of the circulatory system
CPT/HCPCS: 74000; 74177; 80048; 80053; 80202; 82272; 83540; 83605; 84466; 85025; 85027; 85610; 85730; 87040; 87070; 87075; 87076; 87077; 87147; 87185; 87186; 87205; 87641; 93970; 99281; 99285; J0692; J0696; J1756; J2270; J3370; J3480; J7030; J7040; J7050

== ENCOUNTER 2017-07-16 01:26 | Inpatient (IN) | payer OTHER ==
[~2017-07-16] VITALS: Ht 172.7 cm; Wt 123.1 kg
[~2017-07-16 01:26] MED LIST changes: +ADDERALL XR 1010 MG PO; +CARISOPRODOL350 MG PO; +COUMADIN1 MG PO; +COUMADIN5 MG PO; +LISINOPRIL10 MG PO; +OXYCODONE HCL30 MG PO; +PRAVASTATIN SOD80 MG PO; +REQUIP2 MG PO
[2017-07-16 02:13] LABS: EOSINOPHIL COUNT 0.3 K/uL (0-0.3); HEMATOCRIT 38.1 % (38.0-50.0); IMMATURE GRANULOCYTE (%) 0.3 % (0.0-0.7); INSTRUMENT ABS NEUTROPHIL CT 6.1 K/uL; LYMPHOCYTE COUNT 1.8 K/uL (1.0-2.8); MCHC 31.5 G/DL (30.0-36.0); MCV 82.5 FL (86-99); MEAN PLAT.VOLUME 8.6 uM^3 (9.0-12.4); MONOCYTE (%) 9.3 % (3-12); MONOCYTE COUNT 0.8 K/uL (0-0.8); NEUTROPHIL (%) 67.8 % (45-76); NEUTROPHIL COUNT 6.1 K/uL (1.8-6.4); PLATELET COUNT 386 K/uL (156-360); RBC DIS.WIDTH-CV 16.2 % (11.8-14.6); RBC DIS.WIDTH-SD 47.9 % (39-53); RED BLOOD COUNT 4.62 M/uL (4.00-5.50)
[2017-07-16 02:19] LABS: CHLORIDE 99 mEq/L (99-109); SODIUM 139 mEq/L (136-147)
[2017-07-16 02:21] LABS: GLUCOSE 125 mg/dL (70-99); POTASSIUM 3.4 mEq/L (3.7-5.4)
[2017-07-16 02:22] LABS: ANION GAP 11 MEQ/L (2-14)
[2017-07-16 02:23] LABS: TOTAL BILIRUBIN 0.3 mg/dL (0.0-1.0)
[2017-07-16 02:25] LABS: ALKALINE PHOSPHATASE 76 IU/L (3-129); GFR ESTIMATE (CALCULATED) > 59 mL/min/
[2017-07-16 02:26] LABS: UREA NITROGEN (BUN) 6 mg/dL (9-23)
[2017-07-16 02:28] LABS: LIPASE 22 U/L (1.0-51.0)
[2017-07-16 03:10] LABS: ADD MIUA? YES; BILIRUBIN SMALL; BLOOD NEGATIVE; COLOR YELLOW ((YELLOW)); GLUCOSE (STRIP) NEGATIVE; KETONES NEGATIVE; LEUKOCYTES LARGE; NITRITE NEGATIVE; PROTEIN (STRIP) >=500; SPECIFIC GRAVITY 1.019 (1.000-1.030)
[2017-07-16 03:35] LABS: RED BLOOD CELLS 0-5 /HPF (0-5); WHITE BLOOD CELLS TNTC /HPF (0-5)
[2017-07-16 03:37] LABS: BACTERIA 3+ /HPF; CASTS NONE SEEN /LPF; CRYSTALS NONE SEEN; EPITHELIAL CELLS NONE SEEN /HPF; MUCUS 1+ /LPF; UCUL ADDED? YES
[2017-07-16 05:36] LABS: PROTHROMBIN TIME 22.9 SEC (10.2-12.9)
[2017-07-16] MEDS ORDERED: ZYVOX600 MG PO (08:54)
[2017-07-16] MEDS ORDERED: COUMADIN7.5 MG PO (08:56)
[2017-07-16 10:53] LABS: COMMENTS - BLOOD GASES NEG A+C+; DEVICE NC; HEMOGLOBIN 12.8 (12.5-16.6); MECHANICAL RATE 17 resp/min; O2 FLOW 2 L/MIN; PCO2 45 mm Hg (35-45); PO2 85 mm Hg (80-100); SITE LR; pH 7.46 (7.35-7.45)
[2017-07-16 10:54] LABS: BASE EXCESS 7.2 mEq/L (-3 to +3); BICARBONATE 32 mEq/L (22-26); METHEMOGLOBIN 1.3 % (0-1.5); O2 SATURATION (CALCULATED) 98.4 % (95-99)
[2017-07-16 12:55] VITALS: BP 141/87
[2017-07-16 13:19] VITALS: BP 141/87
[2017-07-16 14:36] LABS: METH RESISTANT S AUREUS PCR POSITIVE (NEGATIVE); PROBE CHECK PASS
[2017-07-16 15:23] VITALS: BP 130/72
[2017-07-16 19:45] VITALS: BP 153/81
[2017-07-16 23:00] VITALS: BP 125/67
[2017-07-17 04:00] VITALS: BP 126/78
[2017-07-17 06:04] LABS: ALKALINE PHOSPHATASE 59 IU/L (3-129); ANION GAP 7 MEQ/L (2-14); CHLORIDE 103 MEQ/L (99-109); GFR ESTIMATE (CALCULATED) > 59 mL/min/; GLUCOSE 138 mg/dL (70-99); SAMPLE HEMOLYSIS CHECK 0; SAMPLE ICTERIC CHECK 0; SAMPLE LIPEMIA CHECK 0; SODIUM 137 MEQ/L (136-147); UREA NITROGEN (BUN) 7 mg/dL (9-23)
[2017-07-17 06:07] LABS: POTASSIUM 4.2 MEQ/L (3.7-5.4); TOTAL BILIRUBIN 0.3 MG/DL (0.0-1.0)
[2017-07-17 06:10] LABS: INTER. NORMALIZED RATIO 3.4; PROTHROMBIN TIME 39.3 SEC (10.2-12.9)
[2017-07-17 06:24] LABS: EOSINOPHIL (%) 0 % (0-5); HEMATOCRIT 32.7 % (38.0-50.0); IMMATURE GRANULOCYTE (%) 0.6 % (0.0-0.7); INSTRUMENT ABS NEUTROPHIL CT 5.3 K/uL; LYMPHOCYTE COUNT 0.9 K/uL (1.0-2.8); MCHC 30.6 G/DL (30.0-36.0); MCV 84.9 FL (86-99); MEAN PLAT.VOLUME 8.4 uM^3 (9.0-12.4); MONOCYTE (%) 6.5 % (3-12); MONOCYTE COUNT 0.4 K/uL (0-0.8); NEUTROPHIL COUNT 5.3 K/uL (1.8-6.4); PLATELET COUNT 283 K/uL (156-360); RBC DIS.WIDTH-CV 16.1 % (11.8-14.6); RBC DIS.WIDTH-SD 49.1 % (39-53); RED BLOOD COUNT 3.85 M/uL (4.00-5.50); WHITE BLOOD COUNT 6.7 K/uL (4.1-10.2)
[2017-07-17 08:16] VITALS: BP 110/65
[2017-07-17] MEDS ORDERED: MEDROL DOSEPAK4 MG PO (08:21)
[2017-07-17 11:44] VITALS: BP 120/68
[2017-07-17] MEDS ORDERED: COUMADIN7.5 MG PO (11:46)
[2017-07-17] MEDS ORDERED: LINEZOLID600 MG PO (11:49)
[2017-07-17] MEDS ORDERED: NEURONTIN400 MG PO (11:50)
[2017-07-17] MEDS ORDERED: CYMBALTA60 MG PO (11:50)
[2017-07-17 16:13] VITALS: BP 117/64
[2017-07-17 20:03] VITALS: BP 130/74
== END 2017-07-17 22:00 | disposition home health service (06) | DRG 153 ==
LOC: EME 01:26 → 4EAST 10:11 → EDOF 10:11 → ENRESERV 10:15 → EDOF 11:48 → ENRESERV 11:54 → 4EAST 12:54 → ENPENDDIS 07-17 → 4EAST 07-17 07:58
PROVIDERS: Emergency Medicine; Hospitalist
PROC: 0CJS8ZZ Inspection of Larynx, Via Natural or Artificial Opening Endoscopic (ICD-10-PCS; principal; 2017-07-16)
DX: J04.30 Supraglottitis, unspecified, without obstruction (principal); T46.4X5A Adverse effect of angiotensin-converting-enzyme inhibitors, initial encounter; J05.10 Acute epiglottitis without obstruction; L03.311 Cellulitis of abdominal wall; N39.0 Urinary tract infection, site not specified; D50.9 Iron deficiency anemia, unspecified; E78.5 Hyperlipidemia, unspecified; G35 Multiple sclerosis; N40.1 Benign prostatic hyperplasia with lower urinary tract symptoms; R33.9 Retention of urine, unspecified; I10 Essential (primary) hypertension; F31.9 Bipolar disorder, unspecified; F41.9 Anxiety disorder, unspecified; K59.09 Other constipation; F17.200 Nicotine dependence, unspecified, uncomplicated; K20.9 Esophagitis, unspecified; G89.4 Chronic pain syndrome; E66.9 Obesity, unspecified; Z68.41 Body mass index [BMI] 40.0-44.9, adult; Z86.718 Personal history of other venous thrombosis and embolism; Z88.2 Allergy status to sulfonamides
CPT/HCPCS: 36600; 70490; 71010; 71250; 74177; 80053; 81003; 82607; 82746; 82803; 83690; 85025; 85027; 85610; 87040; 87077; 87086; 87186; 87641; 93005; 99281; 99284; C9113; J0692; J0696; J1100; J1200; J2270; J2405; J3370; J3480; J7030; J7040; J7050; S0028

== ENCOUNTER 2017-09-05 16:10 | Inpatient (IN) | payer OTHER ==
[~2017-09-05] VITALS: Ht 172.7 cm; Wt 127.8 kg
[~2017-09-05 16:10] MED LIST changes: +COUMADIN7.5 MG PO; +LINEZOLID600 MG PO; +MEDROL DOSEPAK4 MG PO; +ZYVOX600 MG PO
[2017-09-05 17:56] LABS: EOSINOPHIL (%) 11.2 % (0-5); EOSINOPHIL COUNT 0.6 K/uL (0-0.3); HEMATOCRIT 40.4 % (38.0-50.0); IMMATURE GRANULOCYTE (%) 0.4 % (0.0-0.7); INSTRUMENT ABS NEUTROPHIL CT 1.9 K/uL; LYMPHOCYTE COUNT 2.2 K/uL (1.0-2.8); MCH 27.5 PG (29.0-34.0); MCHC 31.7 G/DL (30.0-36.0); MCV 86.7 FL (86-99); MEAN PLAT.VOLUME 8.7 uM^3 (9.0-12.4); MONOCYTE (%) 10.8 % (3-12); MONOCYTE COUNT 0.6 K/uL (0-0.8); NEUTROPHIL (%) 35.9 % (45-76); NEUTROPHIL COUNT 1.9 K/uL (1.8-6.4); PLATELET COUNT 318 K/uL (156-360); RBC DIS.WIDTH-CV 16.5 % (11.8-14.6); RBC DIS.WIDTH-SD 52.1 % (39-53); RED BLOOD COUNT 4.66 M/uL (4.00-5.50); WHITE BLOOD COUNT 5.4 K/uL (4.1-10.2)
[2017-09-05 18:07] LABS: CHLORIDE 97 mEq/L (99-109); POTASSIUM 4.4 mEq/L (3.7-5.4); SODIUM 137 mEq/L (136-147)
[2017-09-05 18:10] LABS: GLUCOSE 104 mg/dL (70-99)
[2017-09-05 18:11] LABS: ANION GAP 10 MEQ/L (2-14)
[2017-09-05 18:12] LABS: TOTAL BILIRUBIN 0.4 mg/dL (0.0-1.0)
[2017-09-05 18:13] LABS: ALKALINE PHOSPHATASE 83 IU/L (3-129); GFR ESTIMATE (CALCULATED) > 59 mL/min/
[2017-09-05 18:14] LABS: UREA NITROGEN (BUN) 8 mg/dL (9-23)
[2017-09-05 19:20] LABS: ADD MIUA? YES; BILIRUBIN NEGATIVE; BLOOD LARGE; COLOR AMBER ((YELLOW)); GLUCOSE (STRIP) NEGATIVE; KETONES NEGATIVE; LEUKOCYTES LARGE; NITRITE NEGATIVE; PROTEIN (STRIP) 100; SPECIFIC GRAVITY 1.018 (1.000-1.030); UROBILINOGEN 0.2 MG/DL (0.2-1.0)
[2017-09-05 19:51] LABS: EPITHELIAL CELLS NONE SEEN /HPF; MUCUS NONE SEEN /LPF; RED BLOOD CELLS TNTC /HPF (0-5); WHITE BLOOD CELLS TNTC /HPF (0-5)
[2017-09-05 19:52] LABS: BACTERIA 3+ /HPF
[2017-09-05] MEDS ORDERED: BACTROBAN OINTM22 GM TP (22:03)
[2017-09-05] MEDS ORDERED: FLUVIRIN 245 MCG/019 IM (22:03)
[2017-09-05 22:28] LABS: PROTHROMBIN TIME 16.4 SEC (10.2-12.9)
[2017-09-05 22:33] LABS: INTER. NORMALIZED RATIO 1.4
[2017-09-06 00:39] VITALS: BP 142/78
[2017-09-06 06:24] LABS: EOSINOPHIL COUNT 0.4 K/uL (0-0.3); HEMATOCRIT 36.5 % (38.0-50.0); IMMATURE GRANULOCYTE (%) 0.5 % (0.0-0.7); INSTRUMENT ABS NEUTROPHIL CT 3.2 K/uL; LYMPHOCYTE COUNT 1.7 K/uL (1.0-2.8); MCH 27.3 PG (29.0-34.0); MCHC 31.2 G/DL (30.0-36.0); MCV 87.3 FL (86-99); MEAN PLAT.VOLUME 8.8 uM^3 (9.0-12.4); MONOCYTE (%) 12.3 % (3-12); MONOCYTE COUNT 0.7 K/uL (0-0.8); NEUTROPHIL (%) 53.1 % (45-76); NEUTROPHIL COUNT 3.2 K/uL (1.8-6.4); PLATELET COUNT 282 K/uL (156-360); RBC DIS.WIDTH-CV 16.7 % (11.8-14.6); RBC DIS.WIDTH-SD 53.4 % (39-53); RED BLOOD COUNT 4.18 M/uL (4.00-5.50)
[2017-09-06 06:28] LABS: INTER. NORMALIZED RATIO 1.5; PROTHROMBIN TIME 17.1 SEC (10.2-12.9)
[2017-09-06 07:24] VITALS: BP 111/63
[2017-09-06 16:15] VITALS: BP 100/56
[2017-09-07 00:01] VITALS: BP 108/57
[2017-09-07 06:14] LABS: EOSINOPHIL (%) 8.9 % (0-5); EOSINOPHIL COUNT 0.5 K/uL (0-0.3); HEMATOCRIT 33.2 % (38.0-50.0); IMMATURE GRANULOCYTE (%) 0.2 % (0.0-0.7); INSTRUMENT ABS NEUTROPHIL CT 2.4 K/uL; LYMPHOCYTE COUNT 1.6 K/uL (1.0-2.8); MCHC 31.9 G/DL (30.0-36.0); MCV 87.6 FL (86-99); MEAN PLAT.VOLUME 9.1 uM^3 (9.0-12.4); MONOCYTE (%) 13.8 % (3-12); MONOCYTE COUNT 0.7 K/uL (0-0.8); NEUTROPHIL (%) 45.7 % (45-76); NEUTROPHIL COUNT 2.4 K/uL (1.8-6.4); PLATELET COUNT 258 K/uL (156-360); RBC DIS.WIDTH-CV 16.5 % (11.8-14.6); RED BLOOD COUNT 3.79 M/uL (4.00-5.50); WHITE BLOOD COUNT 5.3 K/uL (4.1-10.2)
[2017-09-07 06:40] LABS: ANION GAP 6 MEQ/L (2-14); CHLORIDE 98 MEQ/L (99-109); GFR ESTIMATE (CALCULATED) > 59 mL/min/; GLUCOSE 107 mg/dL (70-99); POTASSIUM 3.9 MEQ/L (3.7-5.4); SAMPLE HEMOLYSIS CHECK 0; SAMPLE ICTERIC CHECK 0; SAMPLE LIPEMIA CHECK 0; SODIUM 134 MEQ/L (136-147); UREA NITROGEN (BUN) 10 mg/dL (9-23)
[2017-09-07 06:47] LABS: INTER. NORMALIZED RATIO 1.7; PROTHROMBIN TIME 19.4 SEC (10.2-12.9)
[2017-09-07 07:05] VITALS: BP 142/90
[2017-09-07 15:10] VITALS: BP 118/58
[2017-09-07 23:47] VITALS: BP 108/58
[2017-09-08 03:52] LABS: INTER. NORMALIZED RATIO 1.9; PROTHROMBIN TIME 21.8 SEC (10.2-12.9)
[2017-09-08 04:00] LABS: GFR ESTIMATE (CALCULATED) > 59 mL/min/
[2017-09-08 06:45] VITALS: BP 127/64
[2017-09-08] MEDS ORDERED: DOXYCYCLINE HY100 M3 PO (11:13)
[2017-09-08] MEDS ORDERED: ELIQUIS5 MG PO (11:13)
[2017-09-09 13:14] LABS: CHLAMYDIA TRACHOMATIS NEGATIVE; NEISSERIA GONORRHOEAE NEGATIVE
== END 2017-09-08 14:35 | disposition home health service (06) | DRG 603 ==
LOC: EME 16:10 → EDOF 21:17 → 5EAST 21:17 → ENRESERV 21:19 → 5EAST 23:48 → ENPENDDIS 09-08 14:30 → 5EAST 09-08 14:35
PROVIDERS: Emergency Medicine; Pediatrics; Physician Assistant Medical
DX: L03.116 Cellulitis of left lower limb (principal); T83.511A Infection and inflammatory reaction due to indwelling urethral catheter, initial encounter; L03.311 Cellulitis of abdominal wall; G82.20 Paraplegia, unspecified; I82.411 Acute embolism and thrombosis of right femoral vein; N39.0 Urinary tract infection, site not specified; K59.00 Constipation, unspecified; E66.01 Morbid (severe) obesity due to excess calories; L03.115 Cellulitis of right lower limb; M24.451 Recurrent dislocation, right hip; E78.5 Hyperlipidemia, unspecified; G89.29 Other chronic pain; G35 Multiple sclerosis; Z74.09 Other reduced mobility; R79.1 Abnormal coagulation profile; N40.0 Benign prostatic hyperplasia without lower urinary tract symptoms; L89.522 Pressure ulcer of left ankle, stage 2; L89.899 Pressure ulcer of other site, unspecified stage; L89.890 Pressure ulcer of other site, unstageable; F41.9 Anxiety disorder, unspecified; B95.62 Methicillin resistant Staphylococcus aureus infection as the cause of diseases classified elsewhere; Z99.3 Dependence on wheelchair; Z86.718 Personal history of other venous thrombosis and embolism; Z82.49 Family history of ischemic heart disease and other diseases of the circulatory system; Z88.1 Allergy status to other antibiotic agents
CPT/HCPCS: 71010; 73700; 74176; 80048; 80053; 80202; 81003; 82565; 85025; 85610; 87040; 87070; 87075; 87076; 87077; 87086; 87106; 87147; 87185; 87186; 87205; 87491; 87591; 93970; 99281; 99285; J1650; J2270; J2543; J3370; J7030

== ENCOUNTER 2017-09-23 14:18 | Inpatient (IN) | payer OTHER ==
[~2017-09-23] VITALS: Ht 172.7 cm; Wt 127.6 kg
[~2017-09-23 14:18] MED LIST changes: +BACTROBAN OINTM22 GM TP; +DOXYCYCLINE HY100 M3 PO; +ELIQUIS5 MG PO; +FLUVIRIN 245 MCG/019 IM
[2017-09-23 15:38] LABS: ADD MIUA? YES; BILIRUBIN NEGATIVE; BLOOD MODERATE; COLOR YELLOW ((YELLOW)); GLUCOSE (STRIP) NEGATIVE; KETONES NEGATIVE; LEUKOCYTES LARGE; NITRITE NEGATIVE; PROTEIN (STRIP) 30; SPECIFIC GRAVITY 1.008 (1.000-1.030)
[2017-09-23 15:44] LABS: EOSINOPHIL (%) 5.1 % (0-5); EOSINOPHIL COUNT 0.4 K/uL (0-0.3); HEMATOCRIT 39.3 % (38.0-50.0); IMMATURE GRANULOCYTE (%) 0.3 % (0.0-0.7); INSTRUMENT ABS NEUTROPHIL CT 4.6 K/uL; MCH 27.6 PG (29.0-34.0); MCHC 31.3 G/DL (30.0-36.0); MCV 88.1 FL (86-99); MEAN PLAT.VOLUME 8.7 uM^3 (9.0-12.4); MONOCYTE (%) 12.3 % (3-12); MONOCYTE COUNT 0.8 K/uL (0-0.8); NEUTROPHIL (%) 67.5 % (45-76); NEUTROPHIL COUNT 4.6 K/uL (1.8-6.4); PLATELET COUNT 299 K/uL (156-360); RBC DIS.WIDTH-CV 15.3 % (11.8-14.6); RBC DIS.WIDTH-SD 49.7 % (39-53); RED BLOOD COUNT 4.46 M/uL (4.00-5.50); WHITE BLOOD COUNT 6.9 K/uL (4.1-10.2)
[2017-09-23 15:48] LABS: BACTERIA RARE /HPF; BUDDING YEAST 2+; EPITHELIAL CELLS NONE SEEN /HPF; MUCUS TRACE /LPF; RED BLOOD CELLS 30-40 /HPF (0-5); UCUL ADDED? YES; WHITE BLOOD CELLS 20-30 /HPF (0-5)
[2017-09-23 15:55] LABS: CHLORIDE 94 mEq/L (99-109); POTASSIUM 3.9 mEq/L (3.7-5.4); SODIUM 136 mEq/L (136-147)
[2017-09-23 15:57] LABS: GLUCOSE 106 mg/dL (70-99)
[2017-09-23 15:58] LABS: ANION GAP 9 MEQ/L (2-14)
[2017-09-23 15:59] LABS: TOTAL BILIRUBIN 0.5 mg/dL (0.0-1.0)
[2017-09-23 16:00] LABS: ALKALINE PHOSPHATASE 86 IU/L (3-129)
[2017-09-23 16:01] LABS: GFR ESTIMATE (CALCULATED) > 59 mL/min/
[2017-09-23 16:02] LABS: UREA NITROGEN (BUN) 7 mg/dL (9-23)
[2017-09-23 16:09] LABS: TROP-I INTERPRETATION NEGATIVE; TROPONIN-I < 0.01 ng/mL (0.0-0.30)
[2017-09-23] MEDS ORDERED: NEURONTIN400 MG PO (19:32)
[2017-09-23] MEDS ORDERED: OXYMORPHONE HCL15 MG PO (19:40)
[2017-09-23 23:16] VITALS: BP 152/79
[2017-09-24 05:16] VITALS: BP 118/55
[2017-09-24 06:39] LABS: EOSINOPHIL (%) 8.9 % (0-5); EOSINOPHIL COUNT 0.5 K/uL (0-0.3); HEMATOCRIT 33.9 % (38.0-50.0); IMMATURE GRANULOCYTE (%) 0.3 % (0.0-0.7); INSTRUMENT ABS NEUTROPHIL CT 3.2 K/uL; LYMPHOCYTE COUNT 1.4 K/uL (1.0-2.8); MCH 27.5 PG (29.0-34.0); MCHC 31.3 G/DL (30.0-36.0); MCV 87.8 FL (86-99); MEAN PLAT.VOLUME 8.8 uM^3 (9.0-12.4); MONOCYTE (%) 13.5 % (3-12); MONOCYTE COUNT 0.8 K/uL (0-0.8); NEUTROPHIL (%) 53.2 % (45-76); NEUTROPHIL COUNT 3.2 K/uL (1.8-6.4); PLATELET COUNT 277 K/uL (156-360); RBC DIS.WIDTH-CV 15.7 % (11.8-14.6); RBC DIS.WIDTH-SD 50.6 % (39-53); RED BLOOD COUNT 3.86 M/uL (4.00-5.50); WHITE BLOOD COUNT 5.9 K/uL (4.1-10.2)
[2017-09-24 07:10] LABS: ANION GAP 6 MEQ/L (2-14); CHLORIDE 98 MEQ/L (99-109); GFR ESTIMATE (CALCULATED) > 59 mL/min/; GLUCOSE 109 mg/dL (70-99); POTASSIUM 3.8 MEQ/L (3.7-5.4); SAMPLE HEMOLYSIS CHECK 0; SAMPLE ICTERIC CHECK 0; SAMPLE LIPEMIA CHECK 0; SODIUM 137 MEQ/L (136-147); UREA NITROGEN (BUN) 7 mg/dL (9-23)
[2017-09-24 08:01] VITALS: BP 109/62
[2017-09-24 12:25] VITALS: BP 101/58
[2017-09-24 17:20] VITALS: BP 111/64
[2017-09-24 20:16] VITALS: BP 113/56
[2017-09-24 23:43] VITALS: BP 99/58
[2017-09-25 06:01] LABS: HEMATOCRIT 31.2 % (38.0-50.0); MCH 27.5 PG (29.0-34.0); MCHC 31.1 G/DL (30.0-36.0); MCV 88.4 FL (86-99); MEAN PLAT.VOLUME 8.8 uM^3 (9.0-12.4); PLATELET COUNT 247 K/uL (156-360); RBC DIS.WIDTH-CV 15.9 % (11.8-14.6); RBC DIS.WIDTH-SD 51.7 % (39-53); RED BLOOD COUNT 3.53 M/uL (4.00-5.50); WHITE BLOOD COUNT 5.1 K/uL (4.1-10.2)
[2017-09-25 06:25] LABS: ANION GAP 6 MEQ/L (2-14); CHLORIDE 100 MEQ/L (99-109); GFR ESTIMATE (CALCULATED) > 59 mL/min/; GLUCOSE 98 mg/dL (70-99); POTASSIUM 3.6 MEQ/L (3.7-5.4); SAMPLE HEMOLYSIS CHECK 0; SAMPLE ICTERIC CHECK 0; SAMPLE LIPEMIA CHECK 0; SODIUM 139 MEQ/L (136-147); UREA NITROGEN (BUN) 7 mg/dL (9-23)
[2017-09-25 07:30] VITALS: BP 109/63
[2017-09-25 07:53] VITALS: BP 109/63
[2017-09-25 11:15] VITALS: BP 98/54
[2017-09-25 12:31] LABS: GFR ESTIMATE (CALCULATED) > 59 mL/min/; VANCOMYCIN, TROUGH 11.8 MCG/ML (10-20)
[2017-09-25 14:59] VITALS: BP 106/61
[2017-09-25 20:29] VITALS: BP 138/66
[2017-09-26 00:06] VITALS: BP 112/60
[2017-09-26 04:00] VITALS: BP 122/70
[2017-09-26 07:50] LABS: ANION GAP 7 MEQ/L (2-14); CHLORIDE 101 MEQ/L (99-109); GFR ESTIMATE (CALCULATED) > 59 mL/min/; GLUCOSE 97 mg/dL (70-99); POTASSIUM 4.3 MEQ/L (3.7-5.4); SAMPLE HEMOLYSIS CHECK 2; SAMPLE ICTERIC CHECK 0; SAMPLE LIPEMIA CHECK 0; SODIUM 139 MEQ/L (136-147); UREA NITROGEN (BUN) 11 mg/dL (9-23)
[2017-09-26 07:54] VITALS: BP 117/60
[2017-09-26] MEDS ORDERED: LASIX40 MG PO (10:32)
[2017-09-26] MEDS ORDERED: NYSTATIN15 GM TP (10:32)
[2017-09-26 10:48] LABS: HEMATOCRIT 33.1 % (38.0-50.0); MCH 27.5 PG (29.0-34.0); MCHC 30.8 G/DL (30.0-36.0); MCV 89.2 FL (86-99); MEAN PLAT.VOLUME 8.8 uM^3 (9.0-12.4); PLATELET COUNT 251 K/uL (156-360); RBC DIS.WIDTH-CV 15.9 % (11.8-14.6); RBC DIS.WIDTH-SD 51.8 % (39-53); RED BLOOD COUNT 3.71 M/uL (4.00-5.50); WHITE BLOOD COUNT 4.1 K/uL (4.1-10.2)
[2017-09-26 12:02] VITALS: BP 112/64
== END 2017-09-26 18:45 | disposition home health service (06) | DRG 603 ==
LOC: EME 14:18 → EDOF 21:21 → 3EAST 21:21 → ENRESERV 21:22 → 3EAST 22:42
PROVIDERS: Emergency Medicine; Hospitalist; Internal Medicine
DX: L03.311 Cellulitis of abdominal wall (principal); G35 Multiple sclerosis; G82.20 Paraplegia, unspecified; N31.9 Neuromuscular dysfunction of bladder, unspecified; E66.01 Morbid (severe) obesity due to excess calories; L03.116 Cellulitis of left lower limb; L03.115 Cellulitis of right lower limb; L03.314 Cellulitis of groin; I10 Essential (primary) hypertension; E78.5 Hyperlipidemia, unspecified; K21.9 Gastro-esophageal reflux disease without esophagitis; N30.20 Other chronic cystitis without hematuria; N40.0 Benign prostatic hyperplasia without lower urinary tract symptoms; R32 Unspecified urinary incontinence; F32.9 Major depressive disorder, single episode, unspecified; F41.9 Anxiety disorder, unspecified; G89.29 Other chronic pain; Z68.41 Body mass index [BMI] 40.0-44.9, adult; Z74.01 Bed confinement status; Z86.718 Personal history of other venous thrombosis and embolism; Z22.39 Carrier of other specified bacterial diseases; Z79.01 Long term (current) use of anticoagulants
CPT/HCPCS: 71010; 74177; 76870; 80048; 80053; 80202; 81003; 82565; 83605; 84484; 85025; 85027; 87040; 87077; 87086; 87186; 99281; 99285; J1940; J2543; J3010; J3370; J7050

== ENCOUNTER 2017-11-28 20:26 | Inpatient (IN) | payer OTHER ==
[~2017-11-28] VITALS: Ht 170.2 cm; Wt 142.7 kg
[~2017-11-28 20:26] MED LIST changes: +LASIX40 MG PO; +NEURONTIN400 MG PO; +NYSTATIN15 GM TP; -OPANA ER20 MG PO
[2017-11-28 21:02] LABS: HEMATOCRIT 37.9 % (38.0-50.0); MCHC 31.7 G/DL (30.0-36.0); MCV 88.3 FL (86-99); PLATELET COUNT 392 K/uL (156-360); RBC DIS.WIDTH-CV 15.1 % (11.8-14.6); RBC DIS.WIDTH-SD 47.8 % (39-53); RED BLOOD COUNT 4.29 M/uL (4.00-5.50); WHITE BLOOD COUNT 6.5 K/uL (4.1-10.2)
[2017-11-28 21:07] LABS: INTER. NORMALIZED RATIO 1.3
[2017-11-28 21:11] LABS: ALBUMIN 3.5 g/dL (3.2-4.8)
[2017-11-28 21:12] LABS: CHLORIDE 98 mEq/L (99-109); POTASSIUM 4.3 mEq/L (3.7-5.4); SODIUM 137 mEq/L (136-147)
[2017-11-28 21:14] LABS: GLUCOSE 131 mg/dL (70-99); TOTAL PROTEIN 8.3 g/dL (6.4-8.3)
[2017-11-28 21:16] LABS: TOTAL BILIRUBIN 0.3 mg/dL (0.0-1.0)
[2017-11-28 21:17] LABS: ALKALINE PHOSPHATASE 83 IU/L (3-129)
[2017-11-28 21:18] LABS: CREATININE 0.9 mg/dL (0.6-1.3); GFR ESTIMATE (CALCULATED) > 59 mL/min/ (58.99-99999)
[2017-11-28 21:19] LABS: AST (GOT) 15 IU/L (2-34); UREA NITROGEN (BUN) 10 mg/dL (9-23)
[2017-11-28 21:21] LABS: ALT (GPT) 10 IU/L (3-49)
[2017-11-28 21:22] LABS: TROP-I INTERPRETATION NEGATIVE; TROPONIN-I < 0.01 ng/mL (0.0-0.30)
[2017-11-28] MEDS ORDERED: ADDERALL XR 2020 MG PO (22:10)
[2017-11-28] MEDS ORDERED: XARELTO20 MG PO (22:11)
[2017-11-28] MEDS ORDERED: LASIX40 MG PO (22:21)
[2017-11-29 01:05] LABS: APPEARANCE CLEAR ((CLEAR)); BILIRUBIN NEGATIVE; BLOOD LARGE; COLOR STRAW ((YELLOW)); GLUCOSE (STRIP) NEGATIVE; KETONES NEGATIVE; LEUKOCYTES SMALL; NITRITE NEGATIVE; PROTEIN (STRIP) NEGATIVE; SPECIFIC GRAVITY 1.005 (1.000-1.030); UROBILINOGEN 0.2 MG/DL (0.2-1.0)
[2017-11-29 01:35] LABS: BACTERIA RARE /HPF; EPITHELIAL CELLS NONE SEEN /HPF; MUCUS NONE SEEN /LPF; RED BLOOD CELLS TNTC /HPF (0-5)
[2017-11-29 01:57] VITALS: BP 130/76
[2017-11-29 03:33] VITALS: BP 124/74
[2017-11-29 08:18] VITALS: BP 121/72
[2017-11-29 09:21] LABS: HEMATOCRIT 35.4 % (38.0-50.0); MCH 27.5 PG (29.0-34.0); MCHC 31.1 G/DL (30.0-36.0); MCV 88.5 FL (86-99); PLATELET COUNT 358 K/uL (156-360); RBC DIS.WIDTH-CV 14.9 % (11.8-14.6); WHITE BLOOD COUNT 6.4 K/uL (4.1-10.2)
[2017-11-29 09:45] LABS: CHLORIDE 94 MEQ/L (99-109); CREATININE 0.8 MG/DL (0.6-1.3); GFR ESTIMATE (CALCULATED) > 59 mL/min/ (58.99-99999); GLUCOSE 164 mg/dL (70-99); POTASSIUM 3.9 MEQ/L (3.7-5.4); SODIUM 136 MEQ/L (136-147); UREA NITROGEN (BUN) 11 mg/dL (9-23)
[2017-11-29 15:46] VITALS: BP 125/68
[2017-11-29 20:05] VITALS: BP 131/67
[2017-11-29 21:50] LABS: PTT 44.1 SEC (25-37)
[2017-11-30 00:10] VITALS: BP 120/61
[2017-11-30 00:12] LABS: INTER. NORMALIZED RATIO 1.1
[2017-11-30 03:10] VITALS: BP 119/65
[2017-11-30 08:15] VITALS: BP 133/73
[2017-11-30 15:31] VITALS: BP 137/75
[2017-11-30 23:27] VITALS: BP 117/66
[2017-12-01 07:09] VITALS: BP 128/76
[2017-12-01 08:11] LABS: INTER. NORMALIZED RATIO 1.2
[2017-12-01 10:15] LABS: PTT 84.7 SEC (25-37)
[2017-12-01 15:39] VITALS: BP 131/74
[2017-12-01 18:00] LABS: INTER. NORMALIZED RATIO 1.3
[2017-12-01 20:19] LABS: PTT 56.5 SEC (25-37)
[2017-12-01 23:45] VITALS: BP 132/75
[2017-12-02 04:00] VITALS: BP 125/75
[2017-12-02 05:54] LABS: INTER. NORMALIZED RATIO 1.3
[2017-12-02 05:56] LABS: HEMATOCRIT 34.2 % (38.0-50.0); HEMOGLOBIN 10.8 G/DL (12.5-16.6); MCH 27.7 PG (29.0-34.0); MCHC 31.6 G/DL (30.0-36.0); MCV 87.7 FL (86-99); PLATELET COUNT 315 K/uL (156-360); PTT 55.7 SEC (25-37); RBC DIS.WIDTH-CV 14.9 % (11.8-14.6); RBC DIS.WIDTH-SD 47.6 % (39-53); WHITE BLOOD COUNT 5.7 K/uL (4.1-10.2)
[2017-12-02 08:02] VITALS: BP 131/79
[2017-12-02 16:05] VITALS: BP 129/77
[2017-12-02 23:45] VITALS: BP 125/78
[2017-12-03 06:15] LABS: BASOPHIL (%) 0.6 % (0-1); EOSINOPHIL (%) 15.6 % (0-5); EOSINOPHIL COUNT 0.8 K/uL (0-0.3); HEMATOCRIT 35.4 % (38.0-50.0); IMMATURE GRANULOCYTE (%) 0.4 % (0.0-0.7); LYMPHOCYTE (%) 28.5 % (15-42); LYMPHOCYTE COUNT 1.5 K/uL (1.0-2.8); MCH 27.9 PG (29.0-34.0); MCHC 31.1 G/DL (30.0-36.0); MCV 89.8 FL (86-99); MONOCYTE (%) 12.1 % (3-12); MONOCYTE COUNT 0.6 K/uL (0-0.8); NEUTROPHIL (%) 42.8 % (45-76); NEUTROPHIL COUNT 2.3 K/uL (1.8-6.4); PLATELET COUNT 312 K/uL (156-360); RBC DIS.WIDTH-SD 49.4 % (39-53); RED BLOOD COUNT 3.94 M/uL (4.00-5.50); WHITE BLOOD COUNT 5.3 K/uL (4.1-10.2)
[2017-12-03 06:37] LABS: CHLORIDE 93 MEQ/L (99-109); CREATININE 0.7 MG/DL (0.6-1.3); GFR ESTIMATE (CALCULATED) > 59 mL/min/ (58.99-99999); GLUCOSE 146 mg/dL (70-99); POTASSIUM 3.8 MEQ/L (3.7-5.4); SODIUM 133 MEQ/L (136-147); UREA NITROGEN (BUN) 16 mg/dL (9-23)
[2017-12-03 06:39] LABS: INTER. NORMALIZED RATIO 1.6
[2017-12-03 06:42] LABS: PTT 56.9 SEC (25-37)
[2017-12-03 07:47] VITALS: BP 126/77
[2017-12-03 16:05] VITALS: BP 124/69
[2017-12-04 00:42] VITALS: BP 110/61
[2017-12-04 05:44] LABS: BASOPHIL (%) 0.4 % (0-1); EOSINOPHIL (%) 13.2 % (0-5); EOSINOPHIL COUNT 0.9 K/uL (0-0.3); HEMATOCRIT 35.3 % (38.0-50.0); HEMOGLOBIN 11.1 G/DL (12.5-16.6); IMMATURE GRANULOCYTE (%) 0.6 % (0.0-0.7); LYMPHOCYTE (%) 23.1 % (15-42); LYMPHOCYTE COUNT 1.5 K/uL (1.0-2.8); MCHC 31.4 G/DL (30.0-36.0); MCV 88.9 FL (86-99); MONOCYTE (%) 14.2 % (3-12); NEUTROPHIL (%) 48.5 % (45-76); NEUTROPHIL COUNT 3.2 K/uL (1.8-6.4); PLATELET COUNT 280 K/uL (156-360); RBC DIS.WIDTH-CV 15.1 % (11.8-14.6); RBC DIS.WIDTH-SD 49.2 % (39-53); RED BLOOD COUNT 3.97 M/uL (4.00-5.50); WHITE BLOOD COUNT 6.7 K/uL (4.1-10.2)
[2017-12-04 06:38] LABS: CHLORIDE 94 MEQ/L (99-109); CREATININE 0.8 MG/DL (0.6-1.3); GFR ESTIMATE (CALCULATED) > 59 mL/min/ (58.99-99999); GLUCOSE 112 mg/dL (70-99); POTASSIUM 4.1 MEQ/L (3.7-5.4); SODIUM 134 MEQ/L (136-147); UREA NITROGEN (BUN) 17 mg/dL (9-23)
[2017-12-04 07:33] LABS: PTT 65.5 SEC (25-37)
[2017-12-04 08:16] VITALS: BP 139/79
[2017-12-04 14:44] VITALS: BP 120/62
[2017-12-04 23:48] VITALS: BP 116/66
[2017-12-05 06:03] LABS: INTER. NORMALIZED RATIO 2.2
[2017-12-05 06:06] LABS: PTT 75.2 SEC (25-37)
[2017-12-05 07:59] VITALS: BP 125/69
[2017-12-05] MEDS ORDERED: LASIX40 MG PO (11:29)
[2017-12-05] MEDS ORDERED: COUMADIN2.5 MG PO ×2 (11:35→11:36)
[2017-12-05] MEDS ORDERED: POTASSIUM CHLO20 ME2 PO (11:38)
[2017-12-05 15:52] VITALS: BP 142/82
== END 2017-12-05 16:34 | disposition home health service (06) | DRG 300 ==
LOC: EME → EDBD 20:26 → EME 20:26 → 3EAST 23:09 → EDOF 23:09 → ENRESERV 23:10 → 3EAST 11-29 01:05
PROVIDERS: Emergency Medicine; Hospitalist; Internal Medicine; Internal Medicine Hematology & Oncology; Physician Assistant Medical; Student in an Organized Health Care Education/Training Program
DX: I87.009 Postthrombotic syndrome without complications of unspecified extremity (principal); I89.0 Lymphedema, not elsewhere classified; N31.2 Flaccid neuropathic bladder, not elsewhere classified; N40.0 Benign prostatic hyperplasia without lower urinary tract symptoms; N34.2 Other urethritis; R31.0 Gross hematuria; I82.433 Acute embolism and thrombosis of popliteal vein, bilateral; I82.412 Acute embolism and thrombosis of left femoral vein; I82.4Z1 Acute embolism and thrombosis of unspecified deep veins of right distal lower extremity; I82.511 Chronic embolism and thrombosis of right femoral vein; G35 Multiple sclerosis; G82.20 Paraplegia, unspecified; L89.159 Pressure ulcer of sacral region, unspecified stage; L89.892 Pressure ulcer of other site, stage 2; E78.00 Pure hypercholesterolemia, unspecified; E78.5 Hyperlipidemia, unspecified; I36.1 Nonrheumatic tricuspid (valve) insufficiency; I27.20 Pulmonary hypertension, unspecified; I10 Essential (primary) hypertension; K21.9 Gastro-esophageal reflux disease without esophagitis; F41.9 Anxiety disorder, unspecified; F31.9 Bipolar disorder, unspecified; K59.00 Constipation, unspecified; E65 Localized adiposity; E66.01 Morbid (severe) obesity due to excess calories; Z79.01 Long term (current) use of anticoagulants; Z99.3 Dependence on wheelchair; Z74.01 Bed confinement status; Z88.2 Allergy status to sulfonamides; Z68.42 Body mass index [BMI] 45.0-49.9, adult; Z91.19 Patient's noncompliance with other medical treatment and regimen
CPT/HCPCS: 71045; 80048; 80053; 81003; 82140; 83735; 83880; 84484; 85025; 85027; 85610; 85730; 87086; 93005; 93970; 99281; 99285; J0692; J1200; J1940; J2270

== ENCOUNTER 2017-12-19 11:46 | Inpatient (IN) | payer OTHER ==
[~2017-12-19] VITALS: Ht 172.7 cm; Wt 121.5 kg
[~2017-12-19 11:46] MED LIST changes: +ADDERALL XR 2020 MG PO; +COUMADIN2.5 MG PO; +POTASSIUM CHLO20 ME2 PO; +XARELTO20 MG PO
[2017-12-19 13:13] LABS: BASOPHIL (%) 0.3 % (0-1); EOSINOPHIL (%) 2.6 % (0-5); EOSINOPHIL COUNT 0.3 K/uL (0-0.3); HEMATOCRIT 43.6 % (38.0-50.0); HEMOGLOBIN 13.9 G/DL (12.5-16.6); IMMATURE GRANULOCYTE (%) 0.4 % (0.0-0.7); LYMPHOCYTE (%) 11.6 % (15-42); LYMPHOCYTE COUNT 1.3 K/uL (1.0-2.8); MCHC 31.9 G/DL (30.0-36.0); MCV 87.7 FL (86-99); MONOCYTE COUNT 1.1 K/uL (0-0.8); NEUTROPHIL (%) 75.1 % (45-76); NEUTROPHIL COUNT 8.5 K/uL (1.8-6.4); PLATELET COUNT 287 K/uL (156-360); RBC DIS.WIDTH-CV 14.9 % (11.8-14.6); RBC DIS.WIDTH-SD 47.8 % (39-53); RED BLOOD COUNT 4.97 M/uL (4.00-5.50); WHITE BLOOD COUNT 11.3 K/uL (4.1-10.2)
[2017-12-19 13:22] LABS: ALBUMIN 4.2 g/dL (3.2-4.8); CHLORIDE 94 mEq/L (99-109); POTASSIUM 3.4 mEq/L (3.7-5.4); SODIUM 142 mEq/L (136-147)
[2017-12-19 13:24] LABS: GLUCOSE 116 mg/dL (70-99); TOTAL PROTEIN 9.3 g/dL (6.4-8.3)
[2017-12-19 13:26] LABS: TOTAL BILIRUBIN 0.5 mg/dL (0.0-1.0)
[2017-12-19 13:28] LABS: ALKALINE PHOSPHATASE 80 IU/L (3-129); GFR ESTIMATE (CALCULATED) > 59 mL/min/ (58.99-99999)
[2017-12-19 13:29] LABS: AST (GOT) 15 IU/L (2-34); UREA NITROGEN (BUN) 12 mg/dL (9-23)
[2017-12-19 13:31] LABS: ALT (GPT) 11 IU/L (3-49); LIPASE 18 U/L (1.0-51.0)
[2017-12-19 17:26] LABS: APPEARANCE TURBID ((CLEAR)); BILIRUBIN NEGATIVE; BLOOD MODERATE; COLOR AMBER ((YELLOW)); GLUCOSE (STRIP) NEGATIVE; KETONES 20; LEUKOCYTES LARGE; NITRITE NEGATIVE; PROTEIN (STRIP) >=500; SPECIFIC GRAVITY 1.041 (1.000-1.030)
[2017-12-19 17:44] LABS: WHITE BLOOD CELLS TNTC /HPF (0-5)
[2017-12-19 17:45] LABS: UCUL ADDED? YES
[2017-12-19] MEDS ORDERED: LASIX20 MG PO (18:16)
[2017-12-19] MEDS ORDERED: COUMADIN5 MG PO (18:21)
[2017-12-19 20:30] LABS: HEMATOCRIT 40.4 % (38.0-50.0); HEMOGLOBIN 12.7 G/DL (12.5-16.6); MCV 89.2 FL (86-99)
[2017-12-19 20:51] VITALS: BP 132/71
[2017-12-19 23:44] VITALS: BP 120/65
[2017-12-20] VITALS (7 sets, daily range): BP systolic 112–137; BP diastolic 60–88
[2017-12-20 02:34] LABS: HEMATOCRIT 37.1 % (38.0-50.0); HEMOGLOBIN 11.7 G/DL (12.5-16.6); MCV 89.2 FL (86-99)
[2017-12-20 06:35] LABS: HEMATOCRIT 37.7 % (38.0-50.0); HEMOGLOBIN 11.5 G/DL (12.5-16.6); MCH 27.4 PG (29.0-34.0); MCHC 30.5 G/DL (30.0-36.0); MCV 89.8 FL (86-99); PLATELET COUNT 264 K/uL (156-360); RBC DIS.WIDTH-CV 15.1 % (11.8-14.6); RBC DIS.WIDTH-SD 50.3 % (39-53); WHITE BLOOD COUNT 9.3 K/uL (4.1-10.2)
[2017-12-20 07:06] LABS: ALBUMIN 3.5 G/DL (3.2-4.8); CHLORIDE 101 MEQ/L (99-109); CREATININE 0.8 MG/DL (0.6-1.3); GFR ESTIMATE (CALCULATED) > 59 mL/min/ (58.99-99999); GLUCOSE 100 mg/dL (70-99); PHOSPHORUS 3.5 mg/dL (2.5-4.9); POTASSIUM 3.6 MEQ/L (3.7-5.4); SODIUM 145 MEQ/L (136-147); UREA NITROGEN (BUN) 13 mg/dL (9-23)
[2017-12-20 12:09] LABS: INTER. NORMALIZED RATIO 3.6
[2017-12-21] VITALS: BP 143/77
[2017-12-21 04:00] VITALS: BP 158/76
[2017-12-21 06:38] LABS: BASOPHIL (%) 0.4 % (0-1); EOSINOPHIL (%) 6.1 % (0-5); EOSINOPHIL COUNT 0.5 K/uL (0-0.3); HEMATOCRIT 38.5 % (38.0-50.0); HEMOGLOBIN 11.8 G/DL (12.5-16.6); IMMATURE GRANULOCYTE (%) 0.3 % (0.0-0.7); LYMPHOCYTE COUNT 1.4 K/uL (1.0-2.8); MCHC 30.6 G/DL (30.0-36.0); MCV 91.4 FL (86-99); MONOCYTE (%) 12.1 % (3-12); MONOCYTE COUNT 0.9 K/uL (0-0.8); NEUTROPHIL (%) 62.1 % (45-76); NEUTROPHIL COUNT 4.6 K/uL (1.8-6.4); PLATELET COUNT 245 K/uL (156-360); RBC DIS.WIDTH-CV 14.7 % (11.8-14.6); RBC DIS.WIDTH-SD 49.6 % (39-53); RED BLOOD COUNT 4.21 M/uL (4.00-5.50); WHITE BLOOD COUNT 7.4 K/uL (4.1-10.2)
[2017-12-21 07:07] LABS: CHLORIDE 101 MEQ/L (99-109); CREATININE 0.7 MG/DL (0.6-1.3); GFR ESTIMATE (CALCULATED) > 59 mL/min/ (58.99-99999); GLUCOSE 98 mg/dL (70-99); MAGNESIUM 2.2 mg/dl (1.3-2.7); POTASSIUM 3.7 MEQ/L (3.7-5.4); SODIUM 143 MEQ/L (136-147); UREA NITROGEN (BUN) 15 mg/dL (9-23)
[2017-12-21 07:41] VITALS: BP 155/80; BP 194/90
[2017-12-21 09:25] LABS: INTER. NORMALIZED RATIO 3.7
[2017-12-21 12:13] LABS: HEMOGLOBIN 11.4 G/DL (12.5-16.6); MCV 89.4 FL (86-99)
[2017-12-21 16:29] VITALS: BP 142/64
[2017-12-21 19:45] VITALS: BP 110/58
[2017-12-21 23:51] VITALS: BP 112/58
[2017-12-22 05:51] LABS: BASOPHIL (%) 0.4 % (0-1); EOSINOPHIL (%) 8.7 % (0-5); EOSINOPHIL COUNT 0.5 K/uL (0-0.3); HEMATOCRIT 35.2 % (38.0-50.0); IMMATURE GRANULOCYTE (%) 0.4 % (0.0-0.7); LYMPHOCYTE (%) 22.9 % (15-42); LYMPHOCYTE COUNT 1.3 K/uL (1.0-2.8); MCH 27.9 PG (29.0-34.0); MCHC 31.3 G/DL (30.0-36.0); MCV 89.3 FL (86-99); MONOCYTE COUNT 0.6 K/uL (0-0.8); NEUTROPHIL (%) 56.6 % (45-76); NEUTROPHIL COUNT 3.2 K/uL (1.8-6.4); PLATELET COUNT 224 K/uL (156-360); RBC DIS.WIDTH-CV 14.1 % (11.8-14.6); RBC DIS.WIDTH-SD 46.2 % (39-53); RED BLOOD COUNT 3.94 M/uL (4.00-5.50); WHITE BLOOD COUNT 5.6 K/uL (4.1-10.2)
[2017-12-22 06:07] LABS: INTER. NORMALIZED RATIO 3.4
[2017-12-22 06:28] LABS: CHLORIDE 101 MEQ/L (99-109); CREATININE 0.6 MG/DL (0.6-1.3); GFR ESTIMATE (CALCULATED) > 59 mL/min/ (58.99-99999); GLUCOSE 102 mg/dL (70-99); POTASSIUM 3.3 MEQ/L (3.7-5.4); SODIUM 140 MEQ/L (136-147); UREA NITROGEN (BUN) 10 mg/dL (9-23)
[2017-12-22 08:27] VITALS: BP 144/82
[2017-12-22 11:35] VITALS: BP 136/78
[2017-12-22 16:06] VITALS: BP 142/78
[2017-12-22 19:57] VITALS: BP 158/74
[2017-12-23 00:09] VITALS: BP 150/72
[2017-12-23 06:31] LABS: CHLORIDE 100 MEQ/L (99-109); CREATININE 0.5 MG/DL (0.6-1.3); GFR ESTIMATE (CALCULATED) > 59 mL/min/ (58.99-99999); GLUCOSE 101 mg/dL (70-99); POTASSIUM 3.4 MEQ/L (3.7-5.4); SODIUM 139 MEQ/L (136-147); UREA NITROGEN (BUN) 8 mg/dL (9-23)
[2017-12-23 06:34] LABS: INTER. NORMALIZED RATIO 2.5
[2017-12-23 08:54] LABS: BASOPHIL (%) 0.3 % (0-1); EOSINOPHIL (%) 5.4 % (0-5); EOSINOPHIL COUNT 0.4 K/uL (0-0.3); HEMATOCRIT 35.5 % (38.0-50.0); HEMOGLOBIN 11.3 G/DL (12.5-16.6); IMMATURE GRANULOCYTE (%) 0.3 % (0.0-0.7); LYMPHOCYTE (%) 16.7 % (15-42); LYMPHOCYTE COUNT 1.3 K/uL (1.0-2.8); MCH 28.3 PG (29.0-34.0); MCHC 31.8 G/DL (30.0-36.0); MCV 88.8 FL (86-99); MONOCYTE (%) 10.1 % (3-12); MONOCYTE COUNT 0.8 K/uL (0-0.8); NEUTROPHIL (%) 67.2 % (45-76); NEUTROPHIL COUNT 5.1 K/uL (1.8-6.4); PLATELET COUNT 245 K/uL (156-360); WHITE BLOOD COUNT 7.6 K/uL (4.1-10.2)
[2017-12-23 09:00] VITALS: BP 152/92
[2017-12-23 17:48] VITALS: BP 137/81
[2017-12-23 19:51] VITALS: BP 132/80
[2017-12-23 23:54] VITALS: BP 119/66
[2017-12-24 04:02] VITALS: BP 111/69
[2017-12-24 06:37] LABS: BASOPHIL (%) 0.4 % (0-1); EOSINOPHIL (%) 8.2 % (0-5); EOSINOPHIL COUNT 0.4 K/uL (0-0.3); HEMATOCRIT 34.1 % (38.0-50.0); HEMOGLOBIN 10.8 G/DL (12.5-16.6); IMMATURE GRANULOCYTE (%) 0.2 % (0.0-0.7); LYMPHOCYTE (%) 27.4 % (15-42); LYMPHOCYTE COUNT 1.4 K/uL (1.0-2.8); MCH 27.6 PG (29.0-34.0); MCHC 31.7 G/DL (30.0-36.0); MONOCYTE (%) 13.9 % (3-12); MONOCYTE COUNT 0.7 K/uL (0-0.8); NEUTROPHIL (%) 49.9 % (45-76); NEUTROPHIL COUNT 2.6 K/uL (1.8-6.4); PLATELET COUNT 234 K/uL (156-360); RBC DIS.WIDTH-CV 13.8 % (11.8-14.6); RBC DIS.WIDTH-SD 43.6 % (39-53); RED BLOOD COUNT 3.92 M/uL (4.00-5.50); WHITE BLOOD COUNT 5.3 K/uL (4.1-10.2)
[2017-12-24 06:54] LABS: INTER. NORMALIZED RATIO 2.3
[2017-12-24 07:08] LABS: CHLORIDE 97 MEQ/L (99-109); CREATININE 0.6 MG/DL (0.6-1.3); GFR ESTIMATE (CALCULATED) > 59 mL/min/ (58.99-99999); GLUCOSE 97 mg/dL (70-99); POTASSIUM 3.6 MEQ/L (3.7-5.4); SODIUM 137 MEQ/L (136-147); UREA NITROGEN (BUN) 8 mg/dL (9-23)
[2017-12-24 08:07] VITALS: BP 107/67
[2017-12-24 12:58] VITALS: BP 108/66
[2017-12-24 17:00] VITALS: BP 116/71
[2017-12-24 19:35] VITALS: BP 116/68
[2017-12-24 23:44] VITALS: BP 126/75
[2017-12-25 04:15] VITALS: BP 132/84
[2017-12-25 08:00] VITALS: BP 124/76
[2017-12-25 15:59] VITALS: BP 126/74
[2017-12-25 23:53] VITALS: BP 111/67
[2017-12-26 06:23] LABS: BASOPHIL (%) 0.4 % (0-1); EOSINOPHIL (%) 8.5 % (0-5); EOSINOPHIL COUNT 0.5 K/uL (0-0.3); HEMATOCRIT 38.2 % (38.0-50.0); HEMOGLOBIN 12.2 G/DL (12.5-16.6); IMMATURE GRANULOCYTE (%) 0.2 % (0.0-0.7); LYMPHOCYTE (%) 26.5 % (15-42); LYMPHOCYTE COUNT 1.4 K/uL (1.0-2.8); MCH 27.6 PG (29.0-34.0); MCHC 31.9 G/DL (30.0-36.0); MCV 86.4 FL (86-99); MONOCYTE (%) 12.3 % (3-12); MONOCYTE COUNT 0.7 K/uL (0-0.8); NEUTROPHIL (%) 52.1 % (45-76); NEUTROPHIL COUNT 2.8 K/uL (1.8-6.4); PLATELET COUNT 265 K/uL (156-360); RBC DIS.WIDTH-CV 13.8 % (11.8-14.6); RBC DIS.WIDTH-SD 43.8 % (39-53); RED BLOOD COUNT 4.42 M/uL (4.00-5.50); WHITE BLOOD COUNT 5.4 K/uL (4.1-10.2)
[2017-12-26 06:40] LABS: INTER. NORMALIZED RATIO 1.8
[2017-12-26 06:49] LABS: ALBUMIN 3.7 G/DL (3.2-4.8); ALKALINE PHOSPHATASE 52 IU/L (3-129); ALT (GPT) 8 IU/L (3-49); AST (GOT) 13 IU/L (2-34); CHLORIDE 94 MEQ/L (99-109); CREATININE 0.7 MG/DL (0.6-1.3); GFR ESTIMATE (CALCULATED) > 59 mL/min/ (58.99-99999); GLUCOSE 102 mg/dL (70-99); POTASSIUM 4.3 MEQ/L (3.7-5.4); SODIUM 135 MEQ/L (136-147); TOTAL BILIRUBIN 0.5 MG/DL (0.0-1.0); TOTAL PROTEIN 7.6 G/DL (6.4-8.3); UREA NITROGEN (BUN) 9 mg/dL (9-23)
[2017-12-26 06:51] LABS: ALBUMIN 3.6 G/DL (3.2-4.8); ALKALINE PHOSPHATASE 53 IU/L (3-129); ALT (GPT) 7 IU/L (3-49); AST (GOT) 13 IU/L (2-34); CHLORIDE 94 MEQ/L (99-109); CREATININE 0.7 MG/DL (0.6-1.3); DIRECT BILIRUBIN 0.1 mg/dL (0.0-0.3); GFR ESTIMATE (CALCULATED) > 59 mL/min/ (58.99-99999); GLUCOSE 103 mg/dL (70-99); MAGNESIUM 1.9 mg/dl (1.3-2.7); PHOSPHORUS 3.8 mg/dL (2.5-4.9); POTASSIUM 4.5 MEQ/L (3.7-5.4); PREALBUMIN 9.7 mg/dL (10-40); SODIUM 136 MEQ/L (136-147); TOTAL BILIRUBIN 0.5 MG/DL (0.0-1.0); TOTAL PROTEIN 7.1 G/DL (6.4-8.3); TRIGLYCERIDES 178 MG/DL (Normal: <150); UREA NITROGEN (BUN) 9 mg/dL (9-23)
[2017-12-26 07:32] VITALS: BP 110/64
[2017-12-26 12:08] LABS: INTER. NORMALIZED RATIO 1.7
[2017-12-26 12:11] LABS: PTT 32.1 SEC (25-37)
[2017-12-26 15:52] VITALS: BP 141/86
[2017-12-26 20:15] LABS: INTER. NORMALIZED RATIO 1.7
[2017-12-26 23:52] VITALS: BP 123/61
[2017-12-27 08:07] VITALS: BP 122/70
[2017-12-27 09:22] LABS: HEMATOCRIT 35.7 % (38.0-50.0); HEMOGLOBIN 11.5 G/DL (12.5-16.6); MCH 27.8 PG (29.0-34.0); MCHC 32.2 G/DL (30.0-36.0); MCV 86.2 FL (86-99); PLATELET COUNT 274 K/uL (156-360); RBC DIS.WIDTH-CV 14.3 % (11.8-14.6); RED BLOOD COUNT 4.14 M/uL (4.00-5.50)
[2017-12-27 09:49] LABS: CHLORIDE 94 MEQ/L (99-109); CREATININE 0.6 MG/DL (0.6-1.3); GFR ESTIMATE (CALCULATED) > 59 mL/min/ (58.99-99999); GLUCOSE 119 mg/dL (70-99); MAGNESIUM 1.8 mg/dl (1.3-2.7); POTASSIUM 3.4 MEQ/L (3.7-5.4); SODIUM 134 MEQ/L (136-147); UREA NITROGEN (BUN) 8 mg/dL (9-23)
[2017-12-27 10:00] LABS: INTER. NORMALIZED RATIO 1.6
[2017-12-27 11:03] VITALS: BP 134/82
[2017-12-27 16:00] VITALS: BP 120/65
[2017-12-27 19:33] LABS: INTER. NORMALIZED RATIO 1.5
[2017-12-27 23:40] VITALS: BP 112/67
[2017-12-28 07:10] VITALS: BP 129/77
[2017-12-28 08:38] LABS: HEMATOCRIT 35.4 % (38.0-50.0); HEMOGLOBIN 11.2 G/DL (12.5-16.6); MCH 27.5 PG (29.0-34.0); MCHC 31.6 G/DL (30.0-36.0); PLATELET COUNT 262 K/uL (156-360); RBC DIS.WIDTH-CV 14.2 % (11.8-14.6); RBC DIS.WIDTH-SD 45.1 % (39-53); RED BLOOD COUNT 4.07 M/uL (4.00-5.50); WHITE BLOOD COUNT 5.7 K/uL (4.1-10.2)
[2017-12-28 08:48] LABS: INTER. NORMALIZED RATIO 1.4
[2017-12-28 08:50] LABS: PTT 59.1 SEC (25-37)
[2017-12-28 09:04] LABS: CHLORIDE 96 MEQ/L (99-109); CREATININE 0.7 MG/DL (0.6-1.3); GFR ESTIMATE (CALCULATED) > 59 mL/min/ (58.99-99999); GLUCOSE 121 mg/dL (70-99); MAGNESIUM 1.8 mg/dl (1.3-2.7); PHOSPHORUS 2.8 mg/dL (2.5-4.9); POTASSIUM 3.8 MEQ/L (3.7-5.4); SODIUM 134 MEQ/L (136-147); UREA NITROGEN (BUN) 6 mg/dL (9-23)
[2017-12-28] MEDS ORDERED: METOCLOPRAMIDE10 MG PO (09:06)
== END 2017-12-28 19:13 | disposition home or self-care (01) | DRG 391 ==
LOC: EME 11:46 → 5SOUTH 16:57 → EDOF 16:57 → ENRESERV 16:59 → 5SOUTH 20:34 → ENPENDDIS 12-28 13:10 → 5SOUTH 12-28 19:13
PROVIDERS: Emergency Medicine; Hospitalist; Internal Medicine; Physician Assistant
PROC: 0DJ08ZZ Inspection of Upper Intestinal Tract, Via Natural or Artificial Opening Endoscopic (ICD-10-PCS; principal; 2017-12-20)
PROC: 0DJ08ZZ Inspection of Upper Intestinal Tract, Via Natural or Artificial Opening Endoscopic (ICD-10-PCS; 2017-12-25)
DX: K31.84 Gastroparesis (principal); K25.9 Gastric ulcer, unspecified as acute or chronic, without hemorrhage or perforation; K31.89 Other diseases of stomach and duodenum; K25.4 Chronic or unspecified gastric ulcer with hemorrhage; G35 Multiple sclerosis; I10 Essential (primary) hypertension; G82.20 Paraplegia, unspecified; N31.2 Flaccid neuropathic bladder, not elsewhere classified; R79.1 Abnormal coagulation profile; G89.29 Other chronic pain; E78.5 Hyperlipidemia, unspecified; I25.10 Atherosclerotic heart disease of native coronary artery without angina pectoris; N30.90 Cystitis, unspecified without hematuria; M79.89 Other specified soft tissue disorders; K80.20 Calculus of gallbladder without cholecystitis without obstruction; G89.4 Chronic pain syndrome; K63.89 Other specified diseases of intestine; K21.9 Gastro-esophageal reflux disease without esophagitis; K59.00 Constipation, unspecified; E66.9 Obesity, unspecified; Z96.0 Presence of urogenital implants; M25.551 Pain in right hip; Z86.718 Personal history of other venous thrombosis and embolism; Z79.01 Long term (current) use of anticoagulants; Z68.41 Body mass index [BMI] 40.0-44.9, adult; Z82.49 Family history of ischemic heart disease and other diseases of the circulatory system; Z79.899 Other long term (current) drug therapy
CPT/HCPCS: 71045; 71275; 74018; 74022; 74177; 74250; 80048; 80053; 80069; 80076; 81003; 82948; 83690; 83735; 84100; 84134; 84478; 84630 90; 85014; 85018; 85025; 85027; 85610; 85730; 87077; 87086; 87186; 93970; 94799; 99281; 99285; C9113; J0692; J0696; J1940; J2250; J2270; J2405; J2765; J3010; J7030

== ENCOUNTER 2018-01-12 19:20 | Emergency (ER) | payer OTHER ==
[~2018-01-12] VITALS: Ht 172.7 cm; Wt 130.1 kg
[~2018-01-12 19:20] MED LIST changes: +AMLODIPINE BESY10 MG PO; +METOCLOPRAMIDE10 MG PO; -OXYCODONE HCL30 MG PO
[2018-01-12 21:04] LABS: APPEARANCE CLOUDY ((CLEAR)); BILIRUBIN NEGATIVE; BLOOD MODERATE; COLOR YELLOW ((YELLOW)); GLUCOSE (STRIP) NEGATIVE; KETONES NEGATIVE; LEUKOCYTES LARGE; NITRITE NEGATIVE; PROTEIN (STRIP) 100; SPECIFIC GRAVITY 1.014 (1.000-1.030)
[2018-01-12 21:42] LABS: EPITHELIAL CELLS RARE /HPF; RED BLOOD CELLS 0-5 /HPF (0-5); WHITE BLOOD CELLS TNTC /HPF (0-5)
[2018-01-12 21:43] LABS: BACTERIA 3+ /HPF; CALCIUM OXALATE CRYSTALS 2+ /HPF; MUCUS NONE SEEN /LPF
[2018-01-12 22:10] LABS: BASOPHIL (%) 0.1 % (0-1); EOSINOPHIL (%) 9.4 % (0-5); EOSINOPHIL COUNT 0.6 K/uL (0-0.3); HEMATOCRIT 36.9 % (38.0-50.0); HEMOGLOBIN 11.7 G/DL (12.5-16.6); IMMATURE GRANULOCYTE (%) 0.1 % (0.0-0.7); LYMPHOCYTE (%) 22.6 % (15-42); LYMPHOCYTE COUNT 1.5 K/uL (1.0-2.8); MCH 28.1 PG (29.0-34.0); MCHC 31.7 G/DL (30.0-36.0); MCV 88.5 FL (86-99); MONOCYTE (%) 10.8 % (3-12); MONOCYTE COUNT 0.7 K/uL (0-0.8); NEUTROPHIL COUNT 3.8 K/uL (1.8-6.4); PLATELET COUNT 201 K/uL (156-360); RBC DIS.WIDTH-CV 14.7 % (11.8-14.6); RBC DIS.WIDTH-SD 47.2 % (39-53); RED BLOOD COUNT 4.17 M/uL (4.00-5.50); WHITE BLOOD COUNT 6.7 K/uL (4.1-10.2)
[2018-01-12 22:15] LABS: INTER. NORMALIZED RATIO 2.6
[2018-01-12 23:00] VITALS: BP 131/79
== END 2018-01-13 01:12 | disposition home or self-care (01) ==
LOC: EME → EDBD 19:20 → EME 01-13 01:12
PROVIDERS: Physician Assistant
DX: I82.493 Acute embolism and thrombosis of other specified deep vein of lower extremity, bilateral (principal); Z79.01 Long term (current) use of anticoagulants; Z86.718 Personal history of other venous thrombosis and embolism; Z46.6 Encounter for fitting and adjustment of urinary device; K74.60 Unspecified cirrhosis of liver; I10 Essential (primary) hypertension; J45.909 Unspecified asthma, uncomplicated; F41.9 Anxiety disorder, unspecified; F32.9 Major depressive disorder, single episode, unspecified; F31.9 Bipolar disorder, unspecified; Z88.2 Allergy status to sulfonamides; Z88.8 Allergy status to other drugs, medicaments and biological substances
CPT/HCPCS: 81003; 85025; 85610; 87077; 87086; 87186; 93970; 99281; 99285; J2270

== ENCOUNTER 2018-01-15 04:40 | Inpatient (IN) | payer OTHER ==
[~2018-01-15] VITALS: Ht 172.7 cm; Wt 140.5 kg
[2018-01-15 05:36] LABS: INTER. NORMALIZED RATIO 2.1
[2018-01-15 05:39] LABS: CHLORIDE 100 mEq/L (99-109); POTASSIUM 3.8 mEq/L (3.7-5.4); PTT 35.6 SEC (25-37); SODIUM 138 mEq/L (136-147)
[2018-01-15 05:41] LABS: GLUCOSE 124 mg/dL (70-99); TOTAL PROTEIN 8.8 g/dL (6.4-8.3)
[2018-01-15 05:43] LABS: TOTAL BILIRUBIN 0.5 mg/dL (0.0-1.0)
[2018-01-15 05:45] LABS: ALKALINE PHOSPHATASE 82 IU/L (3-129); CREATININE 0.8 mg/dL (0.6-1.3); GFR ESTIMATE (CALCULATED) > 59 mL/min/ (58.99-99999)
[2018-01-15 05:46] LABS: HEMATOCRIT 39.2 % (38.0-50.0); HEMOGLOBIN 12.9 G/DL (12.5-16.6); MCH 28.2 PG (29.0-34.0); MCHC 32.9 G/DL (30.0-36.0); MCV 85.6 FL (86-99); RBC DIS.WIDTH-CV 14.8 % (11.8-14.6); RBC DIS.WIDTH-SD 46.3 % (39-53); RED BLOOD COUNT 4.58 M/uL (4.00-5.50); UREA NITROGEN (BUN) 11 mg/dL (9-23); WHITE BLOOD COUNT 9.1 K/uL (4.1-10.2)
[2018-01-15 05:47] LABS: AST (GOT) 16 IU/L (2-34)
[2018-01-15 05:48] LABS: ALT (GPT) 10 IU/L (3-49); LIPASE 28 U/L (1.0-51.0)
[2018-01-15 05:49] LABS: PLATELET COUNT 264 K/uL (156-360)
[2018-01-15 05:50] LABS: TROP-I INTERPRETATION NEGATIVE; TROPONIN-I < 0.01 ng/mL (0.0-0.30)
[2018-01-15 09:06] LABS: TROP-I INTERPRETATION NEGATIVE; TROPONIN-I < 0.01 ng/mL (0.0-0.30)
[2018-01-15] MEDS ORDERED: NYSTATIN15 GM TP (10:29)
[2018-01-15] MEDS ORDERED: WARFARIN SODIUM1 MG PO (10:32)
[2018-01-15] MEDS ORDERED: OXYMORPHONE HCL15 MG PO (10:35)
[2018-01-15 12:15] VITALS: BP 165/88
[2018-01-15 14:31] LABS: HEMOGLOBIN A1c (GLYCOHEMOGLOB) 5.5 % (Below 5.7)
[2018-01-15 16:50] LABS: TROP-I INTERPRETATION NEGATIVE; TROPONIN-I < 0.01 ng/mL (0.0-0.30)
[2018-01-15 17:03] LABS: C DIFF TOXIN NEGATIVE (NEGATIVE)
[2018-01-15 23:12] VITALS: BP 151/95
[2018-01-16 03:40] VITALS: BP 143/86
[2018-01-16 05:40] LABS: BASOPHIL (%) 0.3 % (0-1); EOSINOPHIL (%) 3.4 % (0-5); EOSINOPHIL COUNT 0.3 K/uL (0-0.3); HEMATOCRIT 39.9 % (38.0-50.0); HEMOGLOBIN 12.5 G/DL (12.5-16.6); IMMATURE GRANULOCYTE (%) 0.3 % (0.0-0.7); LYMPHOCYTE (%) 17.8 % (15-42); LYMPHOCYTE COUNT 1.6 K/uL (1.0-2.8); MCH 27.3 PG (29.0-34.0); MCHC 31.3 G/DL (30.0-36.0); MCV 87.1 FL (86-99); MONOCYTE (%) 12.9 % (3-12); MONOCYTE COUNT 1.2 K/uL (0-0.8); NEUTROPHIL (%) 65.3 % (45-76); PLATELET COUNT 261 K/uL (156-360); RBC DIS.WIDTH-CV 15.2 % (11.8-14.6); RED BLOOD COUNT 4.58 M/uL (4.00-5.50); WHITE BLOOD COUNT 9.2 K/uL (4.1-10.2)
[2018-01-16 05:52] LABS: INTER. NORMALIZED RATIO 1.9
[2018-01-16 06:05] LABS: ALBUMIN 3.7 G/DL (3.2-4.8); ALKALINE PHOSPHATASE 67 IU/L (3-129); ALT (GPT) 7 IU/L (3-49); AST (GOT) 12 IU/L (2-34); CHLORIDE 103 MEQ/L (99-109); CREATININE 0.7 MG/DL (0.6-1.3); GFR ESTIMATE (CALCULATED) > 59 mL/min/ (58.99-99999); GLUCOSE 115 mg/dL (70-99); POTASSIUM 3.5 MEQ/L (3.7-5.4); SODIUM 143 MEQ/L (136-147); TOTAL BILIRUBIN 0.7 MG/DL (0.0-1.0); TOTAL PROTEIN 7.8 G/DL (6.4-8.3); UREA NITROGEN (BUN) 13 mg/dL (9-23)
[2018-01-16 07:21] VITALS: BP 129/79
[2018-01-16 11:44] VITALS: BP 131/79
[2018-01-16 15:52] VITALS: BP 141/73
[2018-01-16 20:45] VITALS: BP 148/85
[2018-01-16 23:51] VITALS: BP 134/79
[2018-01-17 03:52] VITALS: BP 126/61
[2018-01-17 06:01] LABS: INTER. NORMALIZED RATIO 2.4
[2018-01-17 06:04] LABS: BASOPHIL (%) 0.4 % (0-1); EOSINOPHIL (%) 6.8 % (0-5); EOSINOPHIL COUNT 0.6 K/uL (0-0.3); HEMATOCRIT 36.3 % (38.0-50.0); HEMOGLOBIN 11.2 G/DL (12.5-16.6); IMMATURE GRANULOCYTE (%) 0.2 % (0.0-0.7); LYMPHOCYTE (%) 21.7 % (15-42); LYMPHOCYTE COUNT 1.9 K/uL (1.0-2.8); MCH 27.5 PG (29.0-34.0); MCHC 30.9 G/DL (30.0-36.0); MONOCYTE (%) 11.8 % (3-12); NEUTROPHIL (%) 59.1 % (45-76); NEUTROPHIL COUNT 5.1 K/uL (1.8-6.4); PLATELET COUNT 236 K/uL (156-360); RBC DIS.WIDTH-CV 15.1 % (11.8-14.6); RBC DIS.WIDTH-SD 48.9 % (39-53); RED BLOOD COUNT 4.08 M/uL (4.00-5.50); WHITE BLOOD COUNT 8.6 K/uL (4.1-10.2)
[2018-01-17 06:28] LABS: CHLORIDE 104 MEQ/L (99-109); CREATININE 0.7 MG/DL (0.6-1.3); GFR ESTIMATE (CALCULATED) > 59 mL/min/ (58.99-99999); GLUCOSE 110 mg/dL (70-99); POTASSIUM 3.6 MEQ/L (3.7-5.4); SODIUM 142 MEQ/L (136-147); UREA NITROGEN (BUN) 13 mg/dL (9-23)
[2018-01-17 07:00] VITALS: BP 120/71
[2018-01-17 12:17] VITALS: BP 125/70
[2018-01-17 16:41] VITALS: BP 138/92
[2018-01-17 19:00] VITALS: BP 131/78
[2018-01-18 00:16] VITALS: BP 120/83
[2018-01-18 04:04] VITALS: BP 139/83
[2018-01-18 06:09] LABS: BASOPHIL (%) 0.2 % (0-1); EOSINOPHIL (%) 8.4 % (0-5); EOSINOPHIL COUNT 0.7 K/uL (0-0.3); HEMATOCRIT 35.1 % (38.0-50.0); HEMOGLOBIN 10.9 G/DL (12.5-16.6); IMMATURE GRANULOCYTE (%) 0.2 % (0.0-0.7); LYMPHOCYTE COUNT 1.8 K/uL (1.0-2.8); MCH 27.5 PG (29.0-34.0); MCHC 31.1 G/DL (30.0-36.0); MCV 88.4 FL (86-99); MONOCYTE (%) 10.2 % (3-12); MONOCYTE COUNT 0.8 K/uL (0-0.8); NEUTROPHIL COUNT 4.8 K/uL (1.8-6.4); PLATELET COUNT 241 K/uL (156-360); RBC DIS.WIDTH-CV 14.8 % (11.8-14.6); RED BLOOD COUNT 3.97 M/uL (4.00-5.50); WHITE BLOOD COUNT 8.2 K/uL (4.1-10.2)
[2018-01-18 06:10] LABS: INTER. NORMALIZED RATIO 2.8
[2018-01-18 06:39] LABS: CHLORIDE 104 MEQ/L (99-109); CREATININE 0.6 MG/DL (0.6-1.3); GFR ESTIMATE (CALCULATED) > 59 mL/min/ (58.99-99999); GLUCOSE 110 mg/dL (70-99); POTASSIUM 3.9 MEQ/L (3.7-5.4); SODIUM 139 MEQ/L (136-147); UREA NITROGEN (BUN) 9 mg/dL (9-23)
[2018-01-18 10:01] VITALS: BP 121/75
[2018-01-18 11:38] VITALS: BP 132/75
[2018-01-18 16:10] VITALS: BP 133/69
[2018-01-18 20:00] VITALS: BP 129/70
[2018-01-19 00:02] VITALS: BP 144/82
[2018-01-19 04:11] VITALS: BP 134/77
[2018-01-19 07:05] VITALS: BP 131/71
[2018-01-19 12:44] VITALS: BP 128/83
[2018-01-19 16:15] VITALS: BP 137/76
[2018-01-19] MEDS ORDERED: REGLAN5 MG PO (17:12)
[2018-01-19 20:00] VITALS: BP 127/82
== END 2018-01-19 21:57 | disposition home or self-care (01) | DRG 392 ==
LOC: EME 04:40 → EDOF 07:42 → ENRESERV 07:42 → EDOF 07:42 → ENRESERV 11:25 → 5WEST 12:00
PROVIDERS: Emergency Medicine; Internal Medicine
DX: K31.84 Gastroparesis (principal); G82.20 Paraplegia, unspecified; G35 Multiple sclerosis; K59.09 Other constipation; R82.71 Bacteriuria; I27.20 Pulmonary hypertension, unspecified; N31.9 Neuromuscular dysfunction of bladder, unspecified; R33.9 Retention of urine, unspecified; I10 Essential (primary) hypertension; I25.10 Atherosclerotic heart disease of native coronary artery without angina pectoris; E78.5 Hyperlipidemia, unspecified; I89.0 Lymphedema, not elsewhere classified; K21.9 Gastro-esophageal reflux disease without esophagitis; G89.29 Other chronic pain; F32.9 Major depressive disorder, single episode, unspecified; F41.9 Anxiety disorder, unspecified; Z74.01 Bed confinement status; Z79.01 Long term (current) use of anticoagulants; Z86.718 Personal history of other venous thrombosis and embolism
CPT/HCPCS: 71045; 74018; 74177; 78264; 80048; 80053; 81003; 83036; 83605; 83630; 83690; 84443; 84484; 85025; 85027; 85610; 85730; 87040; 87077; 87086; 87186; 87493; 93970; 99281; 99285; A9541; C9113; J2060; J2270; J2765; J7030; S0030

== ENCOUNTER 2018-01-31 18:04 | Inpatient (IN) | payer OTHER ==
[~2018-01-31] VITALS: Ht 175.3 cm; Wt 136.0 kg
[2018-01-31] VITALS: BP 79/49
[~2018-01-31 18:04] MED LIST changes: +REGLAN5 MG PO; +WARFARIN SODIUM1 MG PO
[2018-01-31 18:49] LABS: INTER. NORMALIZED RATIO 4.2
[2018-01-31 18:51] LABS: HEMATOCRIT 35.1 % (38.0-50.0); HEMOGLOBIN 11.3 G/DL (12.5-16.6); MCH 28.4 PG (29.0-34.0); MCHC 32.2 G/DL (30.0-36.0); MCV 88.2 FL (86-99); NRBC (%) 1.7 /100 WBC (0-0); RBC DIS.WIDTH-CV 14.4 % (11.8-14.6); RBC DIS.WIDTH-SD 46.2 % (39-53); RED BLOOD COUNT 3.98 M/uL (4.00-5.50); WHITE BLOOD COUNT 8.1 K/uL (4.1-10.2)
[2018-01-31 19:01] LABS: CHLORIDE 98 mEq/L (99-109); POTASSIUM 3.3 mEq/L (3.7-5.4); SODIUM 139 mEq/L (136-147)
[2018-01-31 19:02] LABS: CARBON DIOXIDE (BICARBONATE) 25.7 MEQ/L (20-31)
[2018-01-31 19:03] LABS: GLUCOSE 101 mg/dL (70-99)
[2018-01-31 19:07] LABS: CREATININE 2.4 mg/dL (0.6-1.3); GFR ESTIMATE (CALCULATED) 37 mL/min/ (58.99-99999)
[2018-01-31 19:08] LABS: UREA NITROGEN (BUN) 18 mg/dL (9-23)
[2018-01-31 19:09] LABS: CREATINE KINASE 155 IU/L (1-294); TOTAL CK 155 IU/L (1-294)
[2018-01-31 19:16] LABS: CK-MB 4.2 ng/mL (0.0-4.9); CKMB RELATIVE INDEX 2.7 (0.0-3.9)
[2018-01-31 19:37] LABS: TROP-I INTERPRETATION NEGATIVE; TROPONIN-I 0.01 ng/mL (0.0-0.30)
[2018-01-31 19:47] LABS: HEMATOLOGY COMMENT 1 SN; PLAT.SUFFICIENCY ADEQUATE; PLATELET COUNT 163 K/uL (156-360)
[2018-01-31 20:27] LABS: BASE EXCESS -2.5 mEq/L (-3 to +3); BICARBONATE 23.7 mEq/L (22-26); CARBOXY HGB 1.3 % (0-5); METHEMOGLOBIN 1.1 % (0-1.5); PCO2 46 mm Hg (35-45); PO2 152 mm Hg (80-100); pH 7.32 (7.35-7.45)
[2018-01-31 20:28] LABS: COMMENTS - BLOOD GASES A+C+; DEVICE 980VENT; FI02 100 %; MECHANICAL RATE 20 resp/min; MODE AC; PEEP 5 CM/H20; SITE RR; TIDAL VOLUME 500 ML; TOTAL RESP RATE 20 resp/min
[2018-01-31 22:30] VITALS: BP 96/61
[2018-01-31 23:00] VITALS: BP 90/59
[2018-02-01] VITALS (28 sets, daily range): BP systolic 73–148; BP diastolic 49–90
[2018-02-01 05:56] LABS: CHLORIDE 98 MEQ/L (99-109); CREATININE 2.3 MG/DL (0.6-1.3); GFR ESTIMATE (CALCULATED) 39 mL/min/ (58.99-99999); GLUCOSE 99 mg/dL (70-99); POTASSIUM 3.3 MEQ/L (3.7-5.4); SODIUM 141 MEQ/L (136-147); UREA NITROGEN (BUN) 22 mg/dL (9-23)
[2018-02-01 12:35] LABS: BASE EXCESS -5.8 mEq/L (-3 to +3); BICARBONATE 20.7 mEq/L (22-26); CARBOXY HGB 1.1 % (0-5); METHEMOGLOBIN 1.6 % (0-1.5); PCO2 44 mm Hg (35-45)
[2018-02-01 12:36] LABS: COMMENTS - BLOOD GASES C+; DEVICE VENT 980; PO2 65 mm Hg (80-100); SITE ALINE; pH 7.28 (7.35-7.45)
[2018-02-01 12:37] LABS: FI02 60 %; MECHANICAL RATE 20 resp/min; MODE A/C; PEEP 5 CM/H20; TIDAL VOLUME 500 ML; TOTAL RESP RATE 20 resp/min
[2018-02-01 15:05] LABS: THYROTROPIN (TSH) 1.7 MIU/L (0.4-5.5)
[2018-02-01 17:08] LABS: ABS NEUTROPHIL COUNT 11.6; ALBUMIN 2.6 G/DL (3.2-4.8); ALKALINE PHOSPHATASE 69 IU/L (3-129); ALT (GPT) 8 IU/L (3-49); ANISOCYTOSIS 1+; AST (GOT) 22 IU/L (2-34); BAND NEUTROPHILS 23.5 % (0-8.0); CHLORIDE 104 MEQ/L (99-109); CREATININE 2.4 MG/DL (0.6-1.3); EOSINOPHIL ABS CT 0; GFR ESTIMATE (CALCULATED) 37 mL/min/ (58.99-99999); GLUCOSE 101 mg/dL (70-99); HEMOGLOBIN 9.2 G/DL (12.5-16.6); HYPOCHROMASIA 1+; MCH 27.7 PG (29.0-34.0); MCHC 31.7 G/DL (30.0-36.0); MCV 87.3 FL (86-99); METAMYELOCYTES 1.7 %; MICROCYTOSIS 1+; MONOCYTES 1.7 % (0-9.0); NRBC (%) 0.2 /100 WBC (0-0); NUCLEATED RBC'S 0.9; PLAT.SUFFICIENCY DECREASED; PLATELET COUNT 74 K/uL (156-360); POIKILOCYTOSIS 1+; POTASSIUM 3.7 MEQ/L (3.7-5.4); RBC DIS.WIDTH-CV 15.6 % (11.8-14.6); RBC DIS.WIDTH-SD 50.2 % (39-53); RED BLOOD COUNT 3.32 M/uL (4.00-5.50); SEG.NEUTROPHILS 66.1 % (46.0-76.0); SODIUM 139 MEQ/L (136-147); TOTAL BILIRUBIN 1.5 MG/DL (0.0-1.0); TOTAL PROTEIN 5.3 G/DL (6.4-8.3); UREA NITROGEN (BUN) 27 mg/dL (9-23); WHITE BLOOD COUNT 12.9 K/uL (4.1-10.2)
[2018-02-01 17:38] LABS: INTER. NORMALIZED RATIO 5.6
[2018-02-02] VITALS (9 sets, daily range): BP systolic 90–145; BP diastolic 64–95
[2018-02-02 11:26] LABS: BASE EXCESS 6.9 mEq/L (-3 to +3); CARBOXY HGB 1.3 % (0-5); METHEMOGLOBIN 1.1 % (0-1.5)
[2018-02-02 11:27] LABS: BICARBONATE 29.9 mEq/L (22-26); COMMENTS - BLOOD GASES C+; DEVICE VENT; FI02 50 %; MODE A/C; PCO2 35 mm Hg (35-45); PO2 51 mm Hg (80-100); SITE ALINE; pH 7.54 (7.35-7.45)
[2018-02-02 11:28] LABS: MECHANICAL RATE 26 resp/min; PEEP 8 CM/H20; TIDAL VOLUME 500 ML; TOTAL RESP RATE 26 resp/min
[2018-02-02 12:02] LABS: HEMATOCRIT 24.6 % (38.0-50.0); HEMOGLOBIN 8.1 G/DL (12.5-16.6); MCH 27.8 PG (29.0-34.0); MCHC 32.9 G/DL (30.0-36.0); MCV 84.5 FL (86-99); NRBC (%) 0.2 /100 WBC (0-0); RBC DIS.WIDTH-CV 15.6 % (11.8-14.6); RED BLOOD COUNT 2.91 M/uL (4.00-5.50); WHITE BLOOD COUNT 8.1 K/uL (4.1-10.2)
[2018-02-02 12:19] LABS: BAND NEUTROPHILS 15.1 % (0-8.0); BASOPHILS 0.9 %; EOSINOPHIL ABS CT 0; IMM.PLATELET FRACTION 3.6 (1-7); LYMPHOCYTES 5.3 % (15.0-45.0); METAMYELOCYTES 3.5 %; MONOCYTES 4.4 % (0-9.0); NUCLEATED RBC'S 3.5; PLAT.SUFFICIENCY DECREASED; SEG.NEUTROPHILS 70.8 % (46.0-76.0); SMUDGE CELLS 5.3
[2018-02-02 12:20] LABS: PLATELET COUNT 42 K/uL (156-360)
[2018-02-02 12:32] LABS: ALBUMIN 2.6 G/DL (3.2-4.8); ALKALINE PHOSPHATASE 70 IU/L (3-129); ALT (GPT) 14 IU/L (3-49); AST (GOT) 29 IU/L (2-34); CHLORIDE 102 MEQ/L (99-109); CREATININE 2.4 MG/DL (0.6-1.3); GFR ESTIMATE (CALCULATED) 37 mL/min/ (58.99-99999); GLUCOSE 154 mg/dL (70-99); HIGH-SENS C-REACTIVE PROTEIN > 8.00 MG/DL (0.02-0.20); MAGNESIUM 1.4 mg/dl (1.3-2.7); POTASSIUM 3.2 MEQ/L (3.7-5.4); SODIUM 143 MEQ/L (136-147); TOTAL BILIRUBIN 2.2 MG/DL (0.0-1.0); TOTAL PROTEIN 5.2 G/DL (6.4-8.3); UREA NITROGEN (BUN) 30 mg/dL (9-23)
[2018-02-02 14:15] LABS: INTER. NORMALIZED RATIO 3.2
[2018-02-03 05:00] VITALS: BP 99/64
[2018-02-03 05:56] LABS: HEMATOCRIT 22.4 % (38.0-50.0); HEMOGLOBIN 7.5 G/DL (12.5-16.6); MCH 27.7 PG (29.0-34.0); MCHC 33.5 G/DL (30.0-36.0); MCV 82.7 FL (86-99); NRBC (%) 0.2 /100 WBC (0-0); RBC DIS.WIDTH-CV 15.5 % (11.8-14.6); RBC DIS.WIDTH-SD 46.9 % (39-53); RED BLOOD COUNT 2.71 M/uL (4.00-5.50); WHITE BLOOD COUNT 9.4 K/uL (4.1-10.2)
[2018-02-03 06:00] VITALS: BP 96/62
[2018-02-03 06:23] LABS: ABS NEUTROPHIL COUNT 8.1; BAND NEUTROPHILS 20.9 % (0-8.0); BASOPHILS 0.9 %; EOSINOPHIL ABS CT 0; HYPOCHROMASIA 2+; IMM.PLATELET FRACTION 6.1 (1-7); LYMPHOCYTES 11.3 % (15.0-45.0); METAMYELOCYTES 1.7 %; NUCLEATED RBC'S 0.9; PLAT.SUFFICIENCY VERY DECREASED; POIKILOCYTOSIS 1+; SEG.NEUTROPHILS 65.2 % (46.0-76.0)
[2018-02-03 06:40] LABS: PHOSPHORUS 2.5 mg/dL (2.5-4.9)
[2018-02-03 06:56] LABS: PLATELET COUNT 29 K/uL (156-360)
[2018-02-03 06:59] LABS: HIGH-SENS C-REACTIVE PROTEIN > 8.00 MG/DL (0.02-0.20); MAGNESIUM 1.7 mg/dl (1.3-2.7)
[2018-02-03 08:00] VITALS: BP 85/69
[2018-02-03 08:15] LABS: ALKALINE PHOSPHATASE 68 IU/L (3-129); ALT (GPT) 12 IU/L (3-49); AST (GOT) 25 IU/L (2-34); CHLORIDE 104 MEQ/L (99-109); CREATININE 2.6 MG/DL (0.6-1.3); GFR ESTIMATE (CALCULATED) 34 mL/min/ (58.99-99999); GLUCOSE 113 mg/dL (70-99); SODIUM 146 MEQ/L (136-147); TOTAL BILIRUBIN 2.6 MG/DL (0.0-1.0); TOTAL PROTEIN 5.7 G/DL (6.4-8.3); UREA NITROGEN (BUN) 40 mg/dL (9-23)
[2018-02-03 20:02] VITALS: BP 99/76
[2018-02-03 22:02] VITALS: BP 100/76
[2018-02-04 02:02] VITALS: BP 101/79
[2018-02-04 04:02] VITALS: BP 104/77
[2018-02-04 05:54] LABS: ALKALINE PHOSPHATASE 84 IU/L (3-129); ALT (GPT) 14 IU/L (3-49); AST (GOT) 25 IU/L (2-34); CHLORIDE 104 MEQ/L (99-109); CREATININE 2.8 MG/DL (0.6-1.3); GFR ESTIMATE (CALCULATED) 31 mL/min/ (58.99-99999); GLUCOSE 114 mg/dL (70-99); PHOSPHORUS 2.8 mg/dL (2.5-4.9); POTASSIUM 3.2 MEQ/L (3.7-5.4); SODIUM 148 MEQ/L (136-147); TOTAL BILIRUBIN 3.1 MG/DL (0.0-1.0); TOTAL PROTEIN 5.8 G/DL (6.4-8.3); UREA NITROGEN (BUN) 51 mg/dL (9-23)
[2018-02-04 05:56] LABS: MAGNESIUM 2.2 mg/dl (1.3-2.7)
[2018-02-04 06:02] VITALS: BP 115/89
[2018-02-04 06:33] LABS: HEMOGLOBIN 7.8 G/DL (12.5-16.6); MCH 27.3 PG (29.0-34.0); MCHC 32.5 G/DL (30.0-36.0); MCV 83.9 FL (86-99); NRBC (%) 0.4 /100 WBC (0-0); RBC DIS.WIDTH-CV 15.8 % (11.8-14.6); RBC DIS.WIDTH-SD 48.5 % (39-53); RED BLOOD COUNT 2.86 M/uL (4.00-5.50); WHITE BLOOD COUNT 9.4 K/uL (4.1-10.2)
[2018-02-04 06:54] LABS: IMM.PLATELET FRACTION 10.8 (1-7); PLAT.SUFFICIENCY VERY DECREASED; PLATELET COUNT 30 K/uL (156-360)
[2018-02-04 09:07] LABS: ABS NEUTROPHIL COUNT 8.6; ANISOCYTOSIS 1+; BAND NEUTROPHILS 11.5 % (0-8.0); EOSINOPHIL ABS CT 0; LYMPHOCYTES 8.9 % (15.0-45.0); NUCLEATED RBC'S 1.8; SEG.NEUTROPHILS 79.6 % (46.0-76.0)
[2018-02-04 20:03] VITALS: BP 132/98
[2018-02-04 22:02] VITALS: BP 103/67
[2018-02-05] VITALS (7 sets, daily range): BP systolic 105–126; BP diastolic 64–80
[2018-02-05 04:40] LABS: HEMATOCRIT 26.6 % (38.0-50.0); HEMOGLOBIN 8.8 G/DL (12.5-16.6); MCH 28.3 PG (29.0-34.0); MCHC 33.1 G/DL (30.0-36.0); MCV 85.5 FL (86-99); NRBC (%) 0.3 /100 WBC (0-0); RBC DIS.WIDTH-CV 16.5 % (11.8-14.6); RBC DIS.WIDTH-SD 51.1 % (39-53); RED BLOOD COUNT 3.11 M/uL (4.00-5.50); WHITE BLOOD COUNT 14.1 K/uL (4.1-10.2)
[2018-02-05 04:51] LABS: ALBUMIN 3.3 g/dL (3.2-4.8); POTASSIUM 3.7 mEq/L (3.7-5.4); SODIUM 150 mEq/L (136-147)
[2018-02-05 04:52] LABS: MAGNESIUM 2.5 mg/dL (1.3-2.7)
[2018-02-05 04:54] LABS: GLUCOSE 115 mg/dL (70-99); TOTAL PROTEIN 6.1 g/dL (6.4-8.3)
[2018-02-05 04:55] LABS: CHLORIDE 108 mEq/L (99-109)
[2018-02-05 04:56] LABS: TOTAL BILIRUBIN 1.8 mg/dL (0.0-1.0)
[2018-02-05 04:57] LABS: ALKALINE PHOSPHATASE 107 IU/L (3-129); PHOSPHORUS 4.9 mg/dL (2.5-4.9)
[2018-02-05 04:58] LABS: GFR ESTIMATE (CALCULATED) 29 mL/min/ (58.99-99999)
[2018-02-05 04:59] LABS: AST (GOT) 23 IU/L (2-34); UREA NITROGEN (BUN) 70 mg/dL (9-23)
[2018-02-05 05:00] LABS: ALT (GPT) 17 IU/L (3-49)
[2018-02-05 08:10] LABS: BASOPHIL (%) 0.1 % (0-1); EOSINOPHIL (%) 0 % (0-5); IMMATURE GRANULOCYTE (%) 3.3 % (0.0-0.7); LYMPHOCYTE (%) 8.7 % (15-42); LYMPHOCYTE COUNT 1.2 K/uL (1.0-2.8); MONOCYTE (%) 6.7 % (3-12); MONOCYTE COUNT 0.9 K/uL (0-0.8); NEUTROPHIL (%) 81.2 % (45-76); NEUTROPHIL COUNT 11.5 K/uL (1.8-6.4); PLAT.SUFFICIENCY DECREASED
[2018-02-05 17:55] LABS: BASE EXCESS 4.8 mEq/L (-3 to +3); BICARBONATE 31.1 mEq/L (22-26); CARBOXY HGB 1.6 % (0-5); COMMENTS - BLOOD GASES C+; CONTINUOUS POS AIRWAY PRESSURE 5 cm H2O; DEVICE VENT; FI02 30 %; METHEMOGLOBIN 1.4 % (0-1.5); MODE SPON; PCO2 55 mm Hg (35-45); PO2 63 mm Hg (80-100); PRES. SUPPORT 10 CM/H2O; SITE A LINE; TOTAL RESP RATE 23 resp/min; pH 7.36 (7.35-7.45)
[2018-02-06] VITALS (23 sets, daily range): BP systolic 132–164; BP diastolic 90–110
[2018-02-06 05:44] LABS: HEMATOCRIT 33.4 % (38.0-50.0); HEMOGLOBIN 10.1 G/DL (12.5-16.6); MCH 27.1 PG (29.0-34.0); MCHC 30.2 G/DL (30.0-36.0); NRBC (%) 0.3 /100 WBC (0-0); RBC DIS.WIDTH-CV 17.1 % (11.8-14.6); RBC DIS.WIDTH-SD 56.1 % (39-53); RED BLOOD COUNT 3.73 M/uL (4.00-5.50); WHITE BLOOD COUNT 19.8 K/uL (4.1-10.2)
[2018-02-06 05:51] LABS: MCV 89.5 FL (86-99); PLATELET COUNT 64 K/uL (156-360)
[2018-02-06 05:55] LABS: HDL CHOLESTEROL 11 MG/DL (Desirable>=40); LDL CHOLESTEROL 64 mg/dL (Desirable<100); NON-HDL CHOLESTEROL 123 mg/dL (Desirable<160); TOTAL CHOLESTEROL 134 mg/dL (Desirable<200); TRIGLYCERIDES 296 MG/DL (Normal: <150)
[2018-02-06 06:06] LABS: ABS NEUTROPHIL COUNT 17.4; ANISOCYTOSIS 1+; ATYPICAL LYMPHOCYTE 1.8 %; EOSINOPHIL ABS CT 0; LYMPHOCYTES 5.2 % (15.0-45.0); MONOCYTES 3.5 % (0-9.0); MYELOCYTES 1.7 %; PLAT.SUFFICIENCY VERY DECREASED; SEG.NEUTROPHILS 87.8 % (46.0-76.0); TOX.VACUOLIZATION 2+; TOXIC GRANULATION 2+
[2018-02-06 06:12] LABS: ALBUMIN 3.1 G/DL (3.2-4.8); ALT (GPT) 12 IU/L (3-49); AST (GOT) 21 IU/L (2-34); CHLORIDE 107 MEQ/L (99-109); CREATININE 2.7 MG/DL (0.6-1.3); GFR ESTIMATE (CALCULATED) 32 mL/min/ (58.99-99999); GLUCOSE 110 mg/dL (70-99); SODIUM 149 MEQ/L (136-147); TOTAL PROTEIN 6.5 G/DL (6.4-8.3); UREA NITROGEN (BUN) 66 mg/dL (9-23)
[2018-02-06 06:14] LABS: ALKALINE PHOSPHATASE 111 IU/L (3-129); MAGNESIUM 2.8 mg/dl (1.3-2.7); PHOSPHORUS 5.2 mg/dL (2.5-4.9); TOTAL BILIRUBIN 1.6 MG/DL (0.0-1.0)
[2018-02-06 11:23] LABS: HEMOGLOBIN A1c (GLYCOHEMOGLOB) 5.9 % (Below 5.7)
[2018-02-06 16:54] LABS: INTER. NORMALIZED RATIO 3.8
[2018-02-07] VITALS (15 sets, daily range): BP systolic 131–173; BP diastolic 77–97
[2018-02-07 05:34] LABS: HEMATOCRIT 30.5 % (38.0-50.0); HEMOGLOBIN 9.6 G/DL (12.5-16.6); MCH 27.4 PG (29.0-34.0); MCHC 31.5 G/DL (30.0-36.0); MCV 87.1 FL (86-99); NRBC (%) 0.4 /100 WBC (0-0); PLATELET COUNT 78 K/uL (156-360); RBC DIS.WIDTH-CV 16.9 % (11.8-14.6); RBC DIS.WIDTH-SD 53.9 % (39-53); WHITE BLOOD COUNT 22.6 K/uL (4.1-10.2)
[2018-02-07 06:15] LABS: BASOPHIL (%) 0.3 % (0-1); BASOPHIL COUNT 0.1 K/uL (0-0.1); EOSINOPHIL (%) 0.1 % (0-5); IMMATURE GRANULOCYTE (%) 2.5 % (0.0-0.7); LYMPHOCYTE (%) 8.6 % (15-42); MONOCYTE (%) 6.6 % (3-12); MONOCYTE COUNT 1.5 K/uL (0-0.8); NEUTROPHIL (%) 81.9 % (45-76); NEUTROPHIL COUNT 18.5 K/uL (1.8-6.4); PLAT.SUFFICIENCY DECREASED
[2018-02-07 07:12] LABS: ALBUMIN 3.1 G/DL (3.2-4.8); ALKALINE PHOSPHATASE 104 IU/L (3-129); ALT (GPT) 11 IU/L (3-49); AST (GOT) 17 IU/L (2-34); CHLORIDE 110 MEQ/L (99-109); GLUCOSE 120 mg/dL (70-99); MAGNESIUM 2.5 mg/dl (1.3-2.7); SODIUM 156 MEQ/L (136-147); TOTAL PROTEIN 6.4 G/DL (6.4-8.3); UREA NITROGEN (BUN) 65 mg/dL (9-23)
[2018-02-07 07:16] LABS: CREATININE 2.1 MG/DL (0.6-1.3); GFR ESTIMATE (CALCULATED) 43 mL/min/ (58.99-99999); PHOSPHORUS 3.3 mg/dL (2.5-4.9); POTASSIUM 2.9 MEQ/L (3.7-5.4); TOTAL BILIRUBIN 2.2 MG/DL (0.0-1.0)
[2018-02-07 17:37] LABS: CHLORIDE 104 MEQ/L (99-109); CREATININE 1.8 MG/DL (0.6-1.3); GFR ESTIMATE (CALCULATED) 51 mL/min/ (58.99-99999); GLUCOSE 147 mg/dL (70-99); POTASSIUM 3.1 MEQ/L (3.7-5.4); UREA NITROGEN (BUN) 58 mg/dL (9-23)
[2018-02-07 17:39] LABS: SODIUM 146 MEQ/L (136-147)
[2018-02-08 05:05] VITALS: BP 158/86
[2018-02-08 05:57] LABS: BASOPHIL (%) 0.2 % (0-1); EOSINOPHIL (%) 0.6 % (0-5); EOSINOPHIL COUNT 0.2 K/uL (0-0.3); HEMOGLOBIN 7.6 G/DL (12.5-16.6); IMMATURE GRANULOCYTE (%) 2.7 % (0.0-0.7); LYMPHOCYTE (%) 10.6 % (15-42); LYMPHOCYTE COUNT 2.5 K/uL (1.0-2.8); MCHC 31.7 G/DL (30.0-36.0); MCV 85.4 FL (86-99); MONOCYTE (%) 6.5 % (3-12); MONOCYTE COUNT 1.5 K/uL (0-0.8); NEUTROPHIL (%) 79.4 % (45-76); NEUTROPHIL COUNT 18.9 K/uL (1.8-6.4); NRBC (%) 0.2 /100 WBC (0-0); PLATELET COUNT 101 K/uL (156-360); RBC DIS.WIDTH-CV 16.8 % (11.8-14.6); RBC DIS.WIDTH-SD 53.1 % (39-53); RED BLOOD COUNT 2.81 M/uL (4.00-5.50); WHITE BLOOD COUNT 23.8 K/uL (4.1-10.2)
[2018-02-08 06:24] LABS: ALKALINE PHOSPHATASE 89 IU/L (3-129); ALT (GPT) 12 IU/L (3-49); AST (GOT) 14 IU/L (2-34); CHLORIDE 100 MEQ/L (99-109); CREATININE 1.4 MG/DL (0.6-1.3); GFR ESTIMATE (CALCULATED) > 59 mL/min/ (58.99-99999); GLUCOSE 119 mg/dL (70-99); PHOSPHORUS 2.4 mg/dL (2.5-4.9); POTASSIUM 3.1 MEQ/L (3.7-5.4); SODIUM 142 MEQ/L (136-147); UREA NITROGEN (BUN) 47 mg/dL (9-23)
[2018-02-08 06:25] LABS: TOTAL BILIRUBIN 1.3 MG/DL (0.0-1.0)
[2018-02-08 08:36] VITALS: BP 170/78
[2018-02-08 11:44] VITALS: BP 159/85
[2018-02-08 12:05] LABS: HEMATOCRIT 22.7 % (38.0-50.0); HEMOGLOBIN 7.3 G/DL (12.5-16.6); MCV 85.7 FL (86-99)
[2018-02-08 12:13] LABS: INTER. NORMALIZED RATIO 3.5
[2018-02-08 17:25] VITALS: BP 153/72
[2018-02-08 19:04] LABS: HEMATOCRIT 22.5 % (38.0-50.0); HEMOGLOBIN 7.2 G/DL (12.5-16.6); MCV 85.9 FL (86-99)
[2018-02-08 19:57] VITALS: BP 159/73
[2018-02-09] VITALS (12 sets, daily range): BP systolic 136–170; BP diastolic 64–84
[2018-02-09 05:55] LABS: BASOPHIL (%) 0.1 % (0-1); EOSINOPHIL (%) 1.5 % (0-5); EOSINOPHIL COUNT 0.3 K/uL (0-0.3); HEMATOCRIT 21.7 % (38.0-50.0); IMMATURE GRANULOCYTE (%) 1.2 % (0.0-0.7); LYMPHOCYTE (%) 16.1 % (15-42); LYMPHOCYTE COUNT 2.9 K/uL (1.0-2.8); MCH 27.7 PG (29.0-34.0); MCHC 32.3 G/DL (30.0-36.0); MCV 85.8 FL (86-99); MONOCYTE (%) 7.3 % (3-12); MONOCYTE COUNT 1.3 K/uL (0-0.8); NEUTROPHIL (%) 73.8 % (45-76); NEUTROPHIL COUNT 13.2 K/uL (1.8-6.4); PLATELET COUNT 113 K/uL (156-360); RBC DIS.WIDTH-CV 16.3 % (11.8-14.6); RBC DIS.WIDTH-SD 50.9 % (39-53); RED BLOOD COUNT 2.53 M/uL (4.00-5.50); WHITE BLOOD COUNT 17.9 K/uL (4.1-10.2)
[2018-02-09 06:11] LABS: INTER. NORMALIZED RATIO 2.9
[2018-02-09 06:29] LABS: ALBUMIN 2.9 G/DL (3.2-4.8); ALKALINE PHOSPHATASE 75 IU/L (3-129); ALT (GPT) 9 IU/L (3-49); AST (GOT) 12 IU/L (2-34); CHLORIDE 101 MEQ/L (99-109); GFR ESTIMATE (CALCULATED) > 59 mL/min/ (58.99-99999); PHOSPHORUS 2.8 mg/dL (2.5-4.9); POTASSIUM 3.1 MEQ/L (3.7-5.4); SODIUM 142 MEQ/L (136-147); TOTAL PROTEIN 5.8 G/DL (6.4-8.3); UREA NITROGEN (BUN) 31 mg/dL (9-23)
[2018-02-09 06:31] LABS: GLUCOSE 88 mg/dL (70-99)
[2018-02-10] VITALS (7 sets, daily range): BP systolic 109–184; BP diastolic 65–88
[2018-02-10 00:52] LABS: HEMATOCRIT 28.3 % (38.0-50.0); MCV 85.5 FL (86-99)
[2018-02-10 00:53] LABS: HEMOGLOBIN 9.4 G/DL (12.5-16.6)
[2018-02-10 06:36] LABS: BASOPHIL (%) 0.1 % (0-1); EOSINOPHIL (%) 2.3 % (0-5); EOSINOPHIL COUNT 0.4 K/uL (0-0.3); HEMATOCRIT 26.7 % (38.0-50.0); HEMOGLOBIN 8.7 G/DL (12.5-16.6); IMMATURE GRANULOCYTE (%) 0.8 % (0.0-0.7); MCH 27.5 PG (29.0-34.0); MCHC 32.6 G/DL (30.0-36.0); MCV 84.5 FL (86-99); MONOCYTE (%) 6.8 % (3-12); MONOCYTE COUNT 1.2 K/uL (0-0.8); NEUTROPHIL COUNT 14.2 K/uL (1.8-6.4); PLATELET COUNT 136 K/uL (156-360); RBC DIS.WIDTH-CV 15.7 % (11.8-14.6); RBC DIS.WIDTH-SD 47.7 % (39-53)
[2018-02-10 06:52] LABS: RED BLOOD COUNT 3.16 M/uL (4.00-5.50)
[2018-02-10 07:06] LABS: ALBUMIN 2.8 G/DL (3.2-4.8); CHLORIDE 98 MEQ/L (99-109); MAGNESIUM 1.7 mg/dl (1.3-2.7); POTASSIUM 3.3 MEQ/L (3.7-5.4); SODIUM 138 MEQ/L (136-147); TOTAL BILIRUBIN 1.2 MG/DL (0.0-1.0)
[2018-02-10 07:11] LABS: ALKALINE PHOSPHATASE 88 IU/L (3-129); ALT (GPT) 10 IU/L (3-49); AST (GOT) 17 IU/L (2-34); CREATININE 0.8 MG/DL (0.6-1.3); GFR ESTIMATE (CALCULATED) > 59 mL/min/ (58.99-99999); GLUCOSE 102 mg/dL (70-99); PHOSPHORUS 2.4 mg/dL (2.5-4.9); TOTAL PROTEIN 6.2 G/DL (6.4-8.3); UREA NITROGEN (BUN) 21 mg/dL (9-23)
[2018-02-11] VITALS: BP 132/74
[2018-02-11 05:54] LABS: BASOPHIL (%) 0.1 % (0-1); EOSINOPHIL (%) 1.5 % (0-5); EOSINOPHIL COUNT 0.2 K/uL (0-0.3); HEMATOCRIT 24.3 % (38.0-50.0); HEMOGLOBIN 7.9 G/DL (12.5-16.6); IMMATURE GRANULOCYTE (%) 0.7 % (0.0-0.7); LYMPHOCYTE (%) 13.9 % (15-42); LYMPHOCYTE COUNT 1.8 K/uL (1.0-2.8); MCH 27.6 PG (29.0-34.0); MCHC 32.5 G/DL (30.0-36.0); MONOCYTE (%) 8.1 % (3-12); MONOCYTE COUNT 1.1 K/uL (0-0.8); NEUTROPHIL (%) 75.7 % (45-76); NEUTROPHIL COUNT 10.1 K/uL (1.8-6.4); PLATELET COUNT 132 K/uL (156-360); RBC DIS.WIDTH-CV 15.8 % (11.8-14.6); RBC DIS.WIDTH-SD 47.7 % (39-53); RED BLOOD COUNT 2.86 M/uL (4.00-5.50); WHITE BLOOD COUNT 13.3 K/uL (4.1-10.2)
[2018-02-11 06:21] LABS: ALBUMIN 2.8 G/DL (3.2-4.8); ALKALINE PHOSPHATASE 73 IU/L (3-129); ALT (GPT) 11 IU/L (3-49); AST (GOT) 16 IU/L (2-34); CHLORIDE 97 MEQ/L (99-109); CREATININE 0.8 MG/DL (0.6-1.3); GFR ESTIMATE (CALCULATED) > 59 mL/min/ (58.99-99999); GLUCOSE 99 mg/dL (70-99); MAGNESIUM 1.6 mg/dl (1.3-2.7); PHOSPHORUS 2.1 mg/dL (2.5-4.9); POTASSIUM 3.1 MEQ/L (3.7-5.4); SODIUM 139 MEQ/L (136-147); TOTAL PROTEIN 6.4 G/DL (6.4-8.3); UREA NITROGEN (BUN) 13 mg/dL (9-23)
[2018-02-11 06:25] VITALS: BP 138/85
[2018-02-11 08:32] VITALS: BP 162/64
[2018-02-11 11:35] VITALS: BP 122/48
[2018-02-11 16:29] VITALS: BP 134/58
[2018-02-11 20:15] VITALS: BP 132/66
[2018-02-12] VITALS (7 sets, daily range): BP systolic 124–140; BP diastolic 58–85
[2018-02-12 05:44] LABS: BASOPHIL (%) 0.2 % (0-1); EOSINOPHIL (%) 1.6 % (0-5); EOSINOPHIL COUNT 0.2 K/uL (0-0.3); HEMATOCRIT 23.5 % (38.0-50.0); HEMOGLOBIN 7.6 G/DL (12.5-16.6); IMMATURE GRANULOCYTE (%) 0.4 % (0.0-0.7); LYMPHOCYTE (%) 15.7 % (15-42); LYMPHOCYTE COUNT 1.8 K/uL (1.0-2.8); MCH 27.9 PG (29.0-34.0); MCHC 32.3 G/DL (30.0-36.0); MCV 86.4 FL (86-99); MONOCYTE (%) 11.1 % (3-12); MONOCYTE COUNT 1.2 K/uL (0-0.8); PLATELET COUNT 157 K/uL (156-360); RBC DIS.WIDTH-CV 16.2 % (11.8-14.6); RBC DIS.WIDTH-SD 49.1 % (39-53); RED BLOOD COUNT 2.72 M/uL (4.00-5.50); WHITE BLOOD COUNT 11.2 K/uL (4.1-10.2)
[2018-02-12 06:03] LABS: ALBUMIN 2.8 G/DL (3.2-4.8); ALKALINE PHOSPHATASE 80 IU/L (3-129); ALT (GPT) 8 IU/L (3-49); AST (GOT) 13 IU/L (2-34); CHLORIDE 99 MEQ/L (99-109); CREATININE 0.8 MG/DL (0.6-1.3); GFR ESTIMATE (CALCULATED) > 59 mL/min/ (58.99-99999); GLUCOSE 109 mg/dL (70-99); MAGNESIUM 1.6 mg/dl (1.3-2.7); PHOSPHORUS 2.4 mg/dL (2.5-4.9); POTASSIUM 3.4 MEQ/L (3.7-5.4); SODIUM 138 MEQ/L (136-147); TOTAL PROTEIN 6.7 G/DL (6.4-8.3); UREA NITROGEN (BUN) 9 mg/dL (9-23)
[2018-02-13 03:34] VITALS: BP 134/59
[2018-02-13 07:58] VITALS: BP 136/74
[2018-02-13 16:00] VITALS: BP 156/88
[2018-02-13 20:00] VITALS: BP 116/55
[2018-02-14 03:38] VITALS: BP 118/65
[2018-02-14 05:59] LABS: HEMATOCRIT 24.9 % (38.0-50.0); HEMOGLOBIN 7.6 G/DL (12.5-16.6); MCH 27.2 PG (29.0-34.0); MCHC 30.5 G/DL (30.0-36.0); MCV 89.2 FL (86-99); RBC DIS.WIDTH-SD 50.6 % (39-53); RED BLOOD COUNT 2.79 M/uL (4.00-5.50); WHITE BLOOD COUNT 9.1 K/uL (4.1-10.2)
[2018-02-14 06:12] LABS: PLATELET COUNT 220 K/uL (156-360)
[2018-02-14 06:33] LABS: CHLORIDE 95 MEQ/L (99-109); CREATININE 0.8 MG/DL (0.6-1.3); GFR ESTIMATE (CALCULATED) > 59 mL/min/ (58.99-99999); GLUCOSE 93 mg/dL (70-99); POTASSIUM 3.6 MEQ/L (3.7-5.4); SODIUM 137 MEQ/L (136-147); UREA NITROGEN (BUN) 9 mg/dL (9-23)
[2018-02-14 06:34] LABS: MAGNESIUM 1.9 mg/dl (1.3-2.7); PHOSPHORUS 4.8 mg/dL (2.5-4.9)
[2018-02-14] MEDS ORDERED: SPIRONOLACTONE25 MG PO (08:15)
[2018-02-14 08:33] VITALS: BP 123/58
[2018-02-14 10:35] LABS: INTER. NORMALIZED RATIO 1.5
[2018-02-14] MEDS ORDERED: COUMADIN2.5 MG PO (11:29)
== END 2018-02-14 21:42 | disposition home health service (06) | DRG 698 ==
LOC: EME 18:04 → 4WEST 20:11 → 4EAST 20:11 → EDOF 20:11 → ENRESERV 20:12 → 4WEST 22:31 → ENRESERV 02-07 15:32 → 4EAST 02-07 17:50 → ENRESERV 02-12 11:42 → CANRESERV 02-12 11:42 → ENRESERV 02-12 17:07 → 5SOUTH 02-12 20:37 → ENPENDDIS 02-14 12:07 → 5SOUTH 02-14 21:42
PROVIDERS: Emergency Medicine; Hospitalist; Internal Medicine; Internal Medicine Critical Care Medicine; Internal Medicine Nephrology; Specialist
PROC: 0BH17EZ Insertion of Endotracheal Airway into Trachea, Via Natural or Artificial Opening (ICD-10-PCS; principal; 2018-01-31)
PROC: 5A1945Z Respiratory Ventilation, 24-96 Consecutive Hours (ICD-10-PCS; 2018-02-01)
PROC: 04HL33Z Insertion of Infusion Device into Left Femoral Artery, Percutaneous Approach (ICD-10-PCS; 2018-02-01)
DX: T83.511A Infection and inflammatory reaction due to indwelling urethral catheter, initial encounter (principal); A41.51 Sepsis due to Escherichia coli [E. coli]; R65.21 Severe sepsis with septic shock; J96.01 Acute respiratory failure with hypoxia; N17.0 Acute kidney failure with tubular necrosis; R53.2 Functional quadriplegia; D62 Acute posthemorrhagic anemia; Y84.6 Urinary catheterization as the cause of abnormal reaction of the patient, or of later complication, without mention of misadventure at the time of the procedure; E87.0 Hyperosmolality and hypernatremia; E87.4 Mixed disorder of acid-base balance; Z68.41 Body mass index [BMI] 40.0-44.9, adult; N39.0 Urinary tract infection, site not specified; I27.20 Pulmonary hypertension, unspecified; K21.9 Gastro-esophageal reflux disease without esophagitis; N18.9 Chronic kidney disease, unspecified; N40.0 Benign prostatic hyperplasia without lower urinary tract symptoms; E66.9 Obesity, unspecified; R31.0 Gross hematuria; N31.2 Flaccid neuropathic bladder, not elsewhere classified; K31.84 Gastroparesis; I25.10 Atherosclerotic heart disease of native coronary artery without angina pectoris; I12.9 Hypertensive chronic kidney disease with stage 1 through stage 4 chronic kidney disease, or unspecified chronic kidney disease; G89.29 Other chronic pain; G35 Multiple sclerosis; E87.6 Hypokalemia; E86.0 Dehydration; E78.5 Hyperlipidemia, unspecified; R13.10 Dysphagia, unspecified; I89.0 Lymphedema, not elsewhere classified; K59.00 Constipation, unspecified; Z91.14 Patient's other noncompliance with medication regimen; Z79.01 Long term (current) use of anticoagulants; Z74.01 Bed confinement status; Z87.440 Personal history of urinary (tract) infections; Z86.718 Personal history of other venous thrombosis and embolism; Z82.49 Family history of ischemic heart disease and other diseases of the circulatory system; Z88.2 Allergy status to sulfonamides
CPT/HCPCS: 36600; 70450; 71045; 71250; 74022; 74176; 80047; 80048; 80048 91; 80053; 80061; 81003; 82533 91; 82550; 82553; 82803; 82948; 83036; 83605; 83735; 83880; 84100; 84145 90; 84443; 84484; 85014; 85018; 85025; 85027; 85610; 85730; 86141; 86850; 86900; 86901; 86920; 87040; 87070; 87077; 87086; 87186; 87205; 87641; 87801; 92526 GN; 92610 GN; 93005; 94002; 94003; 94640; 94640 76; 94799; 99202; 99281; 99285; C1751; C9113; J0171; J0692; J0696; J1720; J1940; J2185; J2250; J2405; J2543; J2765; J3010; J3370; J3411; J3475; J3480; J7030; J7040; J7050; J7070; J7120; P9016; P9017; P9045; P9047

== ENCOUNTER 2018-06-17 11:49 | Inpatient (IN) | payer OTHER ==
[~2018-06-17] VITALS: Ht 172.7 cm; Wt 112.2 kg
[~2018-06-17 11:49] MED LIST changes: +COUMADIN3 MG PO; +SPIRONOLACTONE25 MG PO
[2018-06-17 12:55] LABS: BASOPHIL (%) 0.3 % (0-1); EOSINOPHIL (%) 0.2 % (0-5); HEMOGLOBIN 14.3 G/DL (12.5-16.6); IMMATURE GRANULOCYTE (%) 0.3 % (0.0-0.7); LYMPHOCYTE (%) 11.2 % (15-42); LYMPHOCYTE COUNT 1.6 K/uL (1.0-2.8); MCH 26.5 PG (29.0-34.0); MCHC 32.5 G/DL (30.0-36.0); MCV 81.6 FL (86-99); MONOCYTE (%) 7.8 % (3-12); MONOCYTE COUNT 1.1 K/uL (0-0.8); NEUTROPHIL (%) 80.2 % (45-76); NEUTROPHIL COUNT 11.6 K/uL (1.8-6.4); PLATELET COUNT 380 K/uL (156-360); RBC DIS.WIDTH-SD 44.3 % (39-53); RED BLOOD COUNT 5.39 M/uL (4.00-5.50); WHITE BLOOD COUNT 14.5 K/uL (4.1-10.2)
[2018-06-17 13:08] LABS: ALBUMIN 4.4 g/dL (3.2-4.8); CHLORIDE 86 mEq/L (99-109); POTASSIUM 2.8 mEq/L (3.7-5.4); SODIUM 141 mEq/L (136-147)
[2018-06-17 13:10] LABS: GLUCOSE 149 mg/dL (70-99); TOTAL PROTEIN 9.9 g/dL (6.4-8.3)
[2018-06-17 13:12] LABS: TOTAL BILIRUBIN 0.5 mg/dL (0.0-1.0)
[2018-06-17 13:14] LABS: ALKALINE PHOSPHATASE 88 IU/L (3-129); GFR ESTIMATE (CALCULATED) > 59 mL/min/ (58.99-99999)
[2018-06-17 13:15] LABS: UREA NITROGEN (BUN) 15 mg/dL (9-23)
[2018-06-17 13:16] LABS: AST (GOT) 14 IU/L (2-34)
[2018-06-17 13:17] LABS: ALT (GPT) 7 IU/L (3-49); LIPASE 23 U/L (1.0-51.0)
[2018-06-17 14:34] LABS: APPEARANCE SL.HAZY ((CLEAR)); BILIRUBIN NEGATIVE; BLOOD SMALL; COLOR AMBER ((YELLOW)); GLUCOSE (STRIP) NEGATIVE; KETONES 5; LEUKOCYTES LARGE; NITRITE NEGATIVE; PROTEIN (STRIP) 100
[2018-06-17 14:38] LABS: BACTERIA NONE SEEN /HPF; EPITHELIAL CELLS RARE /HPF; HYALINE CASTS 0-5 /LPF; MUCUS TRACE /LPF; RED BLOOD CELLS 30-40 /HPF (0-5); UCUL ADDED? YES; WHITE BLOOD CELLS TNTC /HPF (0-5)
[2018-06-17] MEDS ORDERED: METOCLOPRAMIDE H5 MG PO (16:06)
[2018-06-17] MEDS ORDERED: PRAMIPEXOLE D0.25 MG PO (16:43)
[2018-06-17 19:15] LABS: INTER. NORMALIZED RATIO 1.7
[2018-06-17 19:24] VITALS: BP 153/100
[2018-06-17 21:33] LABS: MAGNESIUM 2.5 mg/dl (1.3-2.7); PHOSPHORUS 4.4 mg/dL (2.5-4.9)
[2018-06-17 22:46] LABS: HEMATOCRIT 44.4 % (38.0-50.0); HEMOGLOBIN 14.2 G/DL (12.5-16.6); MCV 83.8 FL (86-99)
[2018-06-18 00:56] VITALS: BP 144/93
[2018-06-18 04:41] VITALS: BP 143/92
[2018-06-18 05:30] LABS: INTER. NORMALIZED RATIO 1.9
[2018-06-18 05:42] LABS: HEMATOCRIT 43.8 % (38.0-50.0); HEMOGLOBIN 13.5 G/DL (12.5-16.6); MCH 25.9 PG (29.0-34.0); MCHC 30.8 G/DL (30.0-36.0); MCV 84.1 FL (86-99); PLATELET COUNT 381 K/uL (156-360); RBC DIS.WIDTH-CV 15.4 % (11.8-14.6); RBC DIS.WIDTH-SD 46.1 % (39-53); RED BLOOD COUNT 5.21 M/uL (4.00-5.50); WHITE BLOOD COUNT 15.4 K/uL (4.1-10.2)
[2018-06-18 06:02] LABS: CHLORIDE 91 MEQ/L (99-109); CREATININE 0.9 MG/DL (0.6-1.3); GFR ESTIMATE (CALCULATED) > 59 mL/min/ (58.99-99999); GLUCOSE 130 mg/dL (70-99); SODIUM 143 MEQ/L (136-147); UREA NITROGEN (BUN) 17 mg/dL (9-23)
[2018-06-18 06:11] LABS: POTASSIUM 3.7 MEQ/L (3.7-5.4)
[2018-06-18 07:57] VITALS: BP 144/86
[2018-06-18 12:00] VITALS: BP 142/88
[2018-06-18 16:54] VITALS: BP 147/94
[2018-06-18 20:00] VITALS: BP 157/93
[2018-06-19 04:00] VITALS: BP 144/102
[2018-06-19 07:28] VITALS: BP 151/99
[2018-06-19 09:19] LABS: HEMATOCRIT 38.1 % (38.0-50.0); MCH 26.5 PG (29.0-34.0); MCHC 31.5 G/DL (30.0-36.0); MCV 84.3 FL (86-99); PLATELET COUNT 310 K/uL (156-360); RBC DIS.WIDTH-CV 15.3 % (11.8-14.6); RBC DIS.WIDTH-SD 47.3 % (39-53); RED BLOOD COUNT 4.52 M/uL (4.00-5.50); WHITE BLOOD COUNT 10.9 K/uL (4.1-10.2)
[2018-06-19 10:01] LABS: CHLORIDE 88 MEQ/L (99-109); CREATININE 0.8 MG/DL (0.6-1.3); GFR ESTIMATE (CALCULATED) > 59 mL/min/ (58.99-99999); GLUCOSE 127 mg/dL (70-99); SODIUM 137 MEQ/L (136-147); UREA NITROGEN (BUN) 20 mg/dL (9-23)
[2018-06-19 10:03] LABS: POTASSIUM 2.9 MEQ/L (3.7-5.4)
[2018-06-19 11:55] VITALS: BP 141/96
[2018-06-19 13:49] LABS: C DIFF TOXIN ND (NEGATIVE)
[2018-06-19 14:35] LABS: INTER. NORMALIZED RATIO 2.2
[2018-06-19 15:23] VITALS: BP 150/90
[2018-06-19 20:11] VITALS: BP 138/83
[2018-06-20] VITALS (7 sets, daily range): BP systolic 129–162; BP diastolic 60–97
[2018-06-20 06:32] LABS: INTER. NORMALIZED RATIO 2.1
[2018-06-20 08:00] LABS: HEMATOCRIT 35.1 % (38.0-50.0); HEMOGLOBIN 11.1 G/DL (12.5-16.6); MCH 26.4 PG (29.0-34.0); MCHC 31.6 G/DL (30.0-36.0); MCV 83.4 FL (86-99); PLATELET COUNT 292 K/uL (156-360); RBC DIS.WIDTH-CV 14.8 % (11.8-14.6); RBC DIS.WIDTH-SD 44.4 % (39-53); RED BLOOD COUNT 4.21 M/uL (4.00-5.50); WHITE BLOOD COUNT 9.2 K/uL (4.1-10.2)
[2018-06-20 08:12] LABS: CHLORIDE 89 MEQ/L (99-109); CREATININE 0.6 MG/DL (0.6-1.3); GFR ESTIMATE (CALCULATED) > 59 mL/min/ (58.99-99999); GLUCOSE 112 mg/dL (70-99); POTASSIUM 3.1 MEQ/L (3.7-5.4); SODIUM 137 MEQ/L (136-147); UREA NITROGEN (BUN) 13 mg/dL (9-23)
[2018-06-20 14:33] LABS: MAGNESIUM 2.1 mg/dl (1.3-2.7)
[2018-06-21 03:52] VITALS: BP 124/81
[2018-06-21 06:35] LABS: INTER. NORMALIZED RATIO 2.6
[2018-06-21 06:50] LABS: CHLORIDE 90 MEQ/L (99-109); CREATININE 0.7 MG/DL (0.6-1.3); GFR ESTIMATE (CALCULATED) > 59 mL/min/ (58.99-99999); GLUCOSE 107 mg/dL (70-99); POTASSIUM 3.2 MEQ/L (3.7-5.4); SODIUM 135 MEQ/L (136-147); UREA NITROGEN (BUN) 14 mg/dL (9-23)
[2018-06-21 07:50] VITALS: BP 148/96
[2018-06-21 15:44] VITALS: BP 133/94
[2018-06-21 23:16] VITALS: BP 160/96
[2018-06-22 05:31] LABS: INTER. NORMALIZED RATIO 2.6
[2018-06-22 08:13] VITALS: BP 158/92
[2018-06-22 08:15] LABS: CHLORIDE 89 MEQ/L (99-109); POTASSIUM 3.2 MEQ/L (3.7-5.4); SODIUM 134 MEQ/L (136-147)
[2018-06-22 08:20] LABS: CREATININE 0.7 MG/DL (0.6-1.3); GFR ESTIMATE (CALCULATED) > 59 mL/min/ (58.99-99999); GLUCOSE 106 mg/dL (70-99); UREA NITROGEN (BUN) 14 mg/dL (9-23)
[2018-06-22 16:20] VITALS: BP 140/94
[2018-06-23 07:25] VITALS: BP 141/92
[2018-06-23 08:13] LABS: CHLORIDE 91 MEQ/L (99-109); CREATININE 0.7 MG/DL (0.6-1.3); GFR ESTIMATE (CALCULATED) > 59 mL/min/ (58.99-99999); GLUCOSE 103 mg/dL (70-99); POTASSIUM 3.6 MEQ/L (3.7-5.4); SODIUM 134 MEQ/L (136-147); UREA NITROGEN (BUN) 16 mg/dL (9-23)
[2018-06-23 15:18] VITALS: BP 119/61
[2018-06-23] MEDS ORDERED: ATARAX,VISTARIL25 MG PO (16:17)
[2018-06-23] MEDS ORDERED: PERCOCET 5/31 TABLET PO (16:19)
== END 2018-06-23 19:50 | disposition home health service (06) | DRG 871 ==
LOC: EME 11:49 → 5SOUTH 16:30 → EDOF 16:30 → ENRESERV 16:44 → 5SOUTH 19:32
PROVIDERS: Emergency Medicine; Family Medicine; Hospitalist; Internal Medicine; Physician Assistant
DX: A41.9 Sepsis, unspecified organism (principal); N39.0 Urinary tract infection, site not specified; B96.5 Pseudomonas (aeruginosa) (mallei) (pseudomallei) as the cause of diseases classified elsewhere; J96.01 Acute respiratory failure with hypoxia; J98.11 Atelectasis; G35 Multiple sclerosis; E11.43 Type 2 diabetes mellitus with diabetic autonomic (poly)neuropathy; K31.84 Gastroparesis; R53.2 Functional quadriplegia; E87.6 Hypokalemia; R11.2 Nausea with vomiting, unspecified; R19.7 Diarrhea, unspecified; I27.20 Pulmonary hypertension, unspecified; I10 Essential (primary) hypertension; E78.5 Hyperlipidemia, unspecified; K21.9 Gastro-esophageal reflux disease without esophagitis; G89.29 Other chronic pain; E66.01 Morbid (severe) obesity due to excess calories; Z68.37 Body mass index [BMI] 37.0-37.9, adult; J45.909 Unspecified asthma, uncomplicated; N31.9 Neuromuscular dysfunction of bladder, unspecified; Z86.718 Personal history of other venous thrombosis and embolism; Z74.01 Bed confinement status; Z79.01 Long term (current) use of anticoagulants
CPT/HCPCS: 71045; 74018; 74177; 80048; 80053; 80202; 81003; 82948; 83605; 83630; 83690; 83735; 84100; 84132 91; 85014; 85018; 85025; 85027; 85610; 87040; 87077; 87086; 87177; 87186; 87329; 87493; 87506; 87641; 94799; 99281; 99285; A6214; C9113; J0692; J1650; J1815; J2270; J2405; J2543; J2765; J3010; J3370; J3475; J3480; J7030; S0028; S0030

== ENCOUNTER 2018-06-24 23:36 | Emergency (ER) | payer OTHER ==
[~2018-06-24] VITALS: Ht 167.6 cm; Wt 121.6 kg
[~2018-06-24 23:36] MED LIST changes: +ATARAX,VISTARIL25 MG PO; +METOCLOPRAMIDE H5 MG PO; +PERCOCET 5/31 TABLET PO; +PRAMIPEXOLE D0.25 MG PO
[2018-06-25 00:16] LABS: HEMOGLOBIN 11.1 G/DL (12.5-16.6); MCH 27.3 PG (29.0-34.0); MCHC 32.6 G/DL (30.0-36.0); MCV 83.5 FL (86-99); PLATELET COUNT 249 K/uL (156-360); RBC DIS.WIDTH-CV 15.2 % (11.8-14.6); RBC DIS.WIDTH-SD 45.1 % (39-53); RED BLOOD COUNT 4.07 M/uL (4.00-5.50); WHITE BLOOD COUNT 8.4 K/uL (4.1-10.2)
[2018-06-25 00:30] LABS: CHLORIDE 96 mEq/L (99-109); POTASSIUM 3.4 mEq/L (3.7-5.4); SODIUM 136 mEq/L (136-147)
[2018-06-25 00:32] LABS: GLUCOSE 102 mg/dL (70-99)
[2018-06-25 00:36] LABS: CREATININE 0.9 mg/dL (0.6-1.3); GFR ESTIMATE (CALCULATED) > 59 mL/min/ (58.99-99999)
[2018-06-25 00:37] LABS: UREA NITROGEN (BUN) 17 mg/dL (9-23)
[2018-06-25 04:54] VITALS: BP 119/71
== END 2018-06-25 04:56 | disposition home or self-care (01) ==
LOC: EME 23:36
PROVIDERS: Emergency Medicine
PROC: 0T2BX0Z Change Drainage Device in Bladder, External Approach (ICD-10-PCS; principal; 2018-06-24)
DX: N39.0 Urinary tract infection, site not specified (principal); N36.8 Other specified disorders of urethra; E11.9 Type 2 diabetes mellitus without complications; I10 Essential (primary) hypertension; K21.9 Gastro-esophageal reflux disease without esophagitis; E78.5 Hyperlipidemia, unspecified; G35 Multiple sclerosis; N31.9 Neuromuscular dysfunction of bladder, unspecified; J45.909 Unspecified asthma, uncomplicated; G82.20 Paraplegia, unspecified; F32.9 Major depressive disorder, single episode, unspecified; F41.9 Anxiety disorder, unspecified; F31.9 Bipolar disorder, unspecified; Z79.01 Long term (current) use of anticoagulants; Z86.718 Personal history of other venous thrombosis and embolism; Z86.19 Personal history of other infectious and parasitic diseases; Z87.440 Personal history of urinary (tract) infections; Z87.2 Personal history of diseases of the skin and subcutaneous tissue; Z88.2 Allergy status to sulfonamides; Z88.8 Allergy status to other drugs, medicaments and biological substances
CPT/HCPCS: 80048; 85027; 99281; 99285; J2270